=== PATIENT | female | born 1950 | race Caucasian/White ===

== ENCOUNTER → 2017-04-12 | Outpatient (CLI) | payer OTHER ==
[2017-04-12 13:05] LABS: BASO % 0.3 % (0.0-1.0); EOS # 0.2 10^3/uL (0.0-0.50); EOS % 2.2 % (0.0-3.0); IMMATURE GRANULOCYTE % 0.3 % (0-0); LYMPH # 1.5 10^3/uL (1.5-4.5); LYMPH % 21.1 % (24.0-44.0); MEAN CORPUSCULAR HEMOGLOBIN 28.8 pg (27.0-33.0); MEAN CORPUSCULAR HGB CONC 31.1 g/dl (32.0-36.5); MEAN CORPUSCULAR VOLUME 92.7 fl (80.0-96.0); MONO # 0.7 10^3/uL (0.0-0.8); MONO % 10.3 % (0.0-5.0); NEUTROPHILS # 4.8 10^3/uL (1.8-7.7); NEUTROPHILS % 65.8 % (36.0-66.0); PLATELET COUNT, AUTOMATED 271 10^3/uL (150-450); RED CELL DISTRIBUTION WIDTH 15.7 % (11.5-14.5); WHITE BLOOD COUNT 7.2 10^3/uL (4.0-10.0)
[2017-04-12 13:28] LABS: ADD MANUAL DIFFER NO; DIFF SLIDE NUMBER 119
[2017-04-12 13:30] LABS: ALBUMIN 3.6 GM/DL (3.2-5.2); ALKALINE PHOSPHATASE 131 U/L (45-117); ALT/SGPT 32 U/L (12-78); ANION GAP 6 MEQ/L (8-16); AST/SGOT 19 U/L (15-37); BILIRUBIN,TOTAL 0.7 MG/DL (0.2-1.0); BLOOD UREA NITROGEN 19 MG/DL (7-18); CALCIUM LEVEL 9.1 MG/DL (8.8-10.2); CARBON DIOXIDE LEVEL 29 MEQ/L (21-32); CHLORIDE LEVEL 105 MEQ/L (98-107); CHOLESTEROL LEVEL 207 MG/DL (<200); CREATININE FOR GFR 0.69 MG/DL (0.55-1.02); FREE T4 0.88 NG/DL (0.76-1.46); GLOMERULAR FILTRATION RATE > 60.0 (>45); GLUCOSE, FASTING 83 MG/DL (80-110); POTASSIUM SERUM 4.9 MEQ/L (3.5-5.1); SODIUM LEVEL 140 MEQ/L (136-145); TOTAL PROTEIN 7.2 GM/DL (6.4-8.2); TRIGLYCERIDES LEVEL 85 MG/DL (<150)
== END ==
LOC: M SMT 08:18
PROVIDERS: ATTEND Physician Assistant
DX: I10 Essential (primary) hypertension (principal)

== ENCOUNTER → 2017-04-16 | Outpatient (CLI) | payer OTHER ==
--- NOTE | 2017-04-16 10:41 | REPMRS ---
Patient History The patient states she had a clinical breast exam in April 2017. Patient is postmenopausal and has history of endometrial cancer at age 63. Family history of endometrial cancer in mother at age 50 or over. Digital Mammo Diagnostic Bilateral: April 16, 2017 - Exam #: [id number] Bilateral CC and MLO view(s) were taken. Technologist: Racheal Renae Technologist Prior study comparison: November 17, 2010, digital bilateral screening mammo, performed at [facility]. FINDINGS: There are scattered fibroglandular densities. The cutaneous mole which previously projected in the axillary region on the right MLO view, has been removed in the interval since the last mammogram. There has been no other change in the appearance of the mammogram from the prior studies. There is a mild amount of scattered fibroglandular density which is fairly symmetric. There is no interval development of dominant mass, architectural distortion, or clustered microcalcification suggestive of malignancy. ASSESSMENT: BI-RADS/ACR category 2 mammogram. Benign finding(s). Recommendation Routine screening mammogram in 1 year (for women over age 40). This mammogram was interpreted with the aid of an FDA-approved computer-aided dectection system. Electronically Signed By: Rayo Dorado MD 04/16/17 [id number]
== END ==
LOC: M RAD 10:02
PROVIDERS: ATTEND Physician Assistant
DX: N64.4 Mastodynia (principal); Z78.0 Asymptomatic menopausal state

== ENCOUNTER 2017-08-03 14:28 | Emergency (ER) | payer SELFPAY, OTHER | END 2017-08-03 17:08 | disposition home or self-care (01) | LOC: M ED 14:28 | DX: J06.9 Acute upper respiratory infection, unspecified (principal); I10 Essential (primary) hypertension; Z85.42 Personal history of malignant neoplasm of other parts of uterus; Z79.899 Other long term (current) drug therapy | CPT/HCPCS: 87804 ==

== ENCOUNTER → 2017-10-11 | Outpatient (CLI) | payer OTHER ==
[2017-10-11 13:41] LABS: BASO # 0.1 10^3/uL (0.0-0.2); BASO % 0.4 % (0.0-1.0); EOS # 0.2 10^3/uL (0.0-0.50); EOS % 1.3 % (0.0-3.0); HEMOGLOBIN 13.5 g/dl (12.0-15.5); IMMATURE GRANULOCYTE % 0.3 % (0-3.0); LYMPH # 2.1 10^3/uL (1.5-4.5); LYMPH % 18.3 % (24.0-44.0); MEAN CORPUSCULAR HEMOGLOBIN 28.7 pg (27.0-33.0); MEAN CORPUSCULAR HGB CONC 31.4 g/dl (32.0-36.5); MEAN CORPUSCULAR VOLUME 91.3 fl (80.0-96.0); MONO % 9.1 % (0.0-5.0); NEUTROPHILS # 7.9 10^3/uL (1.8-7.7); NEUTROPHILS % 70.6 % (36.0-66.0); PLATELET COUNT, AUTOMATED 347 10^3/uL (150-450); RED BLOOD COUNT 4.71 10^6/uL (4.00-5.40); RED CELL DISTRIBUTION WIDTH 15.5 % (11.5-14.5); WHITE BLOOD COUNT 11.2 10^3/uL (4.0-10.0)
[2017-10-11 13:44] LABS: ANION GAP 10 MEQ/L (8-16); BLOOD UREA NITROGEN 19 MG/DL (7-18); CALCIUM LEVEL 8.9 MG/DL (8.8-10.2); CARBON DIOXIDE LEVEL 27 MEQ/L (21-32); CHLORIDE LEVEL 103 MEQ/L (98-107); GLOMERULAR FILTRATION RATE > 60.0 (>45); GLUCOSE, FASTING 85 MG/DL (70-100); POTASSIUM SERUM 4.4 MEQ/L (3.5-5.1); SODIUM LEVEL 140 MEQ/L (136-145)
== END ==
LOC: M SMT 08:12
DX: M19.012 Primary osteoarthritis, left shoulder (principal); I10 Essential (primary) hypertension
CPT/HCPCS: 80048

== ENCOUNTER → 2018-01-31 | Outpatient (CLI) | payer OTHER ==
[2018-01-31 13:41] LABS: BASO # 0.1 10^3/uL (0.0-0.2); BASO % 0.6 % (0.0-1.0); EOS # 0.1 10^3/uL (0.0-0.50); EOS % 1.6 % (0.0-3.0); HEMATOCRIT 43.5 % (36.0-47.0); HEMOGLOBIN 13.7 g/dl (12.0-15.5); IMMATURE GRANULOCYTE % 0.3 % (0-3.0); LYMPH # 2.1 10^3/uL (1.5-4.5); LYMPH % 26.2 % (24.0-44.0); MEAN CORPUSCULAR HEMOGLOBIN 29.4 pg (27.0-33.0); MEAN CORPUSCULAR HGB CONC 31.5 g/dl (32.0-36.5); MEAN CORPUSCULAR VOLUME 93.3 fl (80.0-96.0); MONO # 0.7 10^3/uL (0.0-0.8); MONO % 8.7 % (0.0-5.0); NEUTROPHILS % 62.6 % (36.0-66.0); PLATELET COUNT, AUTOMATED 299 10^3/uL (150-450); RED BLOOD COUNT 4.66 10^6/uL (4.00-5.40); RED CELL DISTRIBUTION WIDTH 15.1 % (11.5-14.5)
[2018-01-31 14:09] LABS: ALBUMIN 3.5 GM/DL (3.2-5.2); ALKALINE PHOSPHATASE 125 U/L (45-117); ALT/SGPT 32 U/L (12-78); ANION GAP 8 MEQ/L (8-16); AST/SGOT 22 U/L (7-37); BILIRUBIN,TOTAL 0.7 MG/DL (0.2-1.0); BLOOD UREA NITROGEN 19 MG/DL (7-18); CALCIUM LEVEL 9.1 MG/DL (8.8-10.2); CARBON DIOXIDE LEVEL 29 MEQ/L (21-32); CHLORIDE LEVEL 104 MEQ/L (98-107); CHOLESTEROL LEVEL 218 MG/DL (<200); CHOLESTEROL RISK RATIO 3.892 (<5); CREATININE FOR GFR 0.75 MG/DL (0.55-1.30); FREE T4 0.86 NG/DL (0.76-1.46); GLOMERULAR FILTRATION RATE > 60.0 (>45); GLUCOSE, FASTING 89 MG/DL (70-100); HDL CHOLESTEROL 56 MG/DL (>40); LDL CHOLESTEROL 145.2 MG/DL (<100); NON-HDL-C 162 MG/DL; POTASSIUM SERUM 4.6 MEQ/L (3.5-5.1); SODIUM LEVEL 141 MEQ/L (136-145); TOTAL PROTEIN 7.4 GM/DL (6.4-8.2); TRIGLYCERIDES LEVEL 84 MG/DL (<150)
== END ==
LOC: M SMT 08:24
DX: J06.9 Acute upper respiratory infection, unspecified (principal); I10 Essential (primary) hypertension
CPT/HCPCS: 84443

== ENCOUNTER → 2018-11-15 | Outpatient (REF) | payer OTHER ==
[~2018-11-15] MED LIST: CARV12.5 PO; CITA20TA6 PO; HYDR25TAB PO; LISI10TA4 PO; MAGICMW SSP; TESS100C PO
== END ==
LOC: M LABDRAW1 12:53
PROVIDERS: ATTEND Radiology Diagnostic Radiology
DX: N63.20 Unspecified lump in the left breast, unspecified quadrant (principal)

== ENCOUNTER → 2018-12-06 | Outpatient (CLI) | payer OTHER | LOC: M SMT 09:53 | PROVIDERS: ATTEND Physician Assistant | DX: E78.00 Pure hypercholesterolemia, unspecified (principal); Z53.9 Procedure and treatment not carried out, unspecified reason ==

== ENCOUNTER → 2018-12-12 | Outpatient (CLI) | payer MEDICARE, OTHER ==
[2018-12-12 09:32] LABS: BASO % 0.4 % (0.0-1.0); EOS # 0.2 10^3/uL (0.0-0.50); EOS % 2.5 % (0.0-3.0); HEMATOCRIT 44.6 % (36.0-47.0); LYMPH # 1.9 10^3/uL (1.5-4.5); LYMPH % 24.6 % (24.0-44.0); MEAN CORPUSCULAR HEMOGLOBIN 29.2 pg (27.0-33.0); MEAN CORPUSCULAR HGB CONC 31.4 g/dl (32.0-36.5); MEAN CORPUSCULAR VOLUME 92.9 fl (80.0-96.0); MONO # 0.9 10^3/uL (0.0-0.8); MONO % 11.6 % (0.0-5.0); NEUTROPHILS # 4.6 10^3/uL (1.8-7.7); NEUTROPHILS % 60.6 % (36.0-66.0); PLATELET COUNT, AUTOMATED 272 10^3/uL (150-450); WHITE BLOOD COUNT 7.6 10^3/uL (4.0-10.0)
[2018-12-12 09:57] LABS: ALBUMIN 3.6 GM/DL (3.2-5.2); ALT/SGPT 25 U/L (12-78); BILIRUBIN,TOTAL 0.5 MG/DL (0.2-1.0); BLOOD UREA NITROGEN 20 MG/DL (7-18); CALCIUM LEVEL 9.3 MG/DL (8.8-10.2); CARBON DIOXIDE LEVEL 29 MEQ/L (21-32); CHLORIDE LEVEL 104 MEQ/L (98-107); CHOLESTEROL LEVEL 233 MG/DL (<200); CHOLESTEROL RISK RATIO 3.758 (<5); CREATININE FOR GFR 0.68 MG/DL (0.55-1.30); FREE T4 0.84 NG/DL (0.76-1.46); GLOMERULAR FILTRATION RATE > 60.0 (>45); GLUCOSE, FASTING 87 MG/DL (70-100); HDL CHOLESTEROL 62 MG/DL (>40); HEMOGLOBIN A1c 5.9 %; LDL CHOLESTEROL 157 MG/DL (<100); NON-HDL-C 171 MG/DL; POTASSIUM SERUM 4.8 MEQ/L (3.5-5.1); SODIUM LEVEL 140 MEQ/L (136-145); TOTAL PROTEIN 7.2 GM/DL (6.4-8.2); TRIGLYCERIDES LEVEL 72 MG/DL (<150)
== END ==
LOC: M LAB 08:15
PROVIDERS: ATTEND Physician Assistant
DX: E78.00 Pure hypercholesterolemia, unspecified (principal)

== ENCOUNTER → 2018-12-14 | Outpatient (CLI) | payer MEDICARE ==
--- NOTE | 2018-12-14 15:15 | ECHO ---
DATE OF PROCEDURE: 12/14/2018 AGE: 67 GENDER: Female HEIGHT: 63 inches WEIGHT: 290 pounds BODY SURFACE AREA: 2.26 m2 PATIENT LOCATION: Outpatient. REFERRING PHYSICIAN: CHARIS Quijano INDICATION: Dyspnea. 2D MEASUREMENTS: RV: 3.9 cm LV: 4.3 cm Septum: 1.0 cm Posterior wall: 1.1 cm Aortic root: 3.1 cm LA: 3.4 cm LVEF: 65% DOPPLER MEASUREMENTS: AV:1.6 m/s LVOT: 1.2 m/s LVOT diameter: 1.9 cm MV-E: 63, A: 77, EA ratio: 0.8 Early mitral deceleration time: 289 ms E prime: 4.8, A prime 8.4, E/E prime ratio: 13 PCWP: 15.3 mmHg PV: 0.9 m/s Pulmonary artery acceleration time: 110 ms RVSP: 34 mmHg IVC: 1.8 - 2.0 cm ? COMMENTS: Normal sinus rhythm without intraventricular conduction disturbance. Technically challenging study in light of the patient's body habitus but diagnostically useful information was still obtained. M-mode and two-dimensional echocardiography was performed with pulsed, continuous wave, color flow and tissue Doppler studies. Normal left ventricular size, wall thickness and wall motion. Normal left atrial size with a degree of impairment of LV diastolic function, but current estimated mean left atrial pressure upper limits of normal. Normal right heart chamber sizes and motion with Doppler evidence of mild pulmonary hypertension. IVC size was somewhat difficult to visualize in light of her body habitus but did not appear to be dilated and suspected fairly normal respiratory collapse. Slight aortic valvular sclerosis without functional abnormality. Mild mitral annular thickening with very mild insufficiency. Normal appearing tricuspid valve with mild insufficiency. Normal aortic root size. No apparent intracardiac mass or pericardial effusion. MTDD
== END ==
LOC: M CARPUL 08:19
PROVIDERS: ATTEND Physician Assistant
DX: R06.09 Other forms of dyspnea (principal)

== ENCOUNTER → 2019-02-09 | Outpatient (CLI) | payer MEDICARE ==
[~2019-02-09] MED LIST changes: +ACET-683 PO; +CVS50CAP PO; +IBUP200T45 PO; +LETR2.5T2 PO; +SIMV20TA2 PO; +TUMS750C5 PO
--- NOTE | 2019-02-11 07:38 | RADONC ---
RADIATION ONCOLOGY CONSULTATION NOTE DATE: 02/09/2019 CHART NUMBER: [id number] DIAGNOSIS: Left breast cancer. STAGE I A, T1b, N0, M0, ER positive, SD positive, HER2 negative, grade 1, Oncotype score 12. ECOG PERFORMANCE STATUS: 0 CONSULTATION NOTE: Ms. Camargo is a very pleasant 68-year-old white female with the diagnosis of what appears to be a stage I A, [id number] well-differentiated infiltrating ductal carcinoma of the left breast which is ER positive, SD positive, HER2/negative with an Oncotype score of 12 who is presenting to us today for consideration of postoperative radiation therapy for conservative breast management. HISTORY OF PRESENT ILLNESS: The patient was in her usual state of health until routine mammogram was done on November 10, 2018 which showed a suspicious lesion in the 12 o'clock position of the left breast. On 12/16/2018, the patient underwent a needle guided lumpectomy and sentinel lymph node biopsy with Dr. Sarah Steinberg MD. Pathology revealed a 1 cm well-differentiated infiltrating ductal carcinoma. All margins of resection were negative. The tumor was estrogen receptor and progesterone receptor positive and HER2 negative. [place] lymph node sampling revealed one sentinel lymph node which was negative for metastatic disease. An Oncotype recurrence score was noted to be 12. The patient was deemed not to be a candidate for systemic chemotherapy and is now being referred to us for consideration of postoperative radiation therapy for conservative breast management. PAST MEDICAL HISTORY: The patient's past medical history is positive for hypertension and arthritis. She has had a uterine cancer in 2016 with a hysterectomy and bilateral salpingo-oophorectomy undertaken. ALLERGIES: The patient has NO KNOWN DRUG ALLERGIES. SOCIAL HISTORY: The patient does not smoke cigarettes nor abuse alcohol. FAMILY HISTORY: The patient's family history is positive for a mother with ovarian cancer. REVIEW OF SYSTEMS: The patient's review of systems is positive for some depression for which she is taking antidepressants. It is otherwise noncontributory. She denies nausea, vomiting, fevers, chills, night sweats, diplopia, headaches, anxiety or depression, anorexia, weight loss, visual disturbances, chest pain, urinary or bowel difficulties, bone pain, or neurological problems. PHYSICAL EXAMINATION: The patient is a well-developed, well-nourished female in no acute distress. HEENT exam is normocephalic, atraumatic. Extraocular movements are intact. There is no palpable cervical, supraclavicular, infraclavicular, axillary, or inguinal lymphadenopathy present. Lungs are clear to auscultation and percussion. Heart has a regular rate and rhythm. Abdomen is benign with no hepatosplenomegaly, masses, or tenderness. Breast examination reveals no masses or discharge bilaterally. Skeletal examination reveals no tenderness to pressure or percussion of the bony skeleton. Extremities reveal no clubbing, cyanosis, or edema. Neurologic exam is grossly intact, as is the remainder of the physical examination. ASSESSMENT: Clearly the patient is a candidate for external beam radiation therapy and I have so informed her. I have discussed with the patient in detail the potential benefits as well as possible acute and chronic sequelae of external beam radiation therapy. We discussed logistics of treatment planning, simulation and subsequent fractionated daily radiation treatments. I have scheduled the patient for the next available simulation slot and radiation treatments will follow. Thank you for allowing us to participate in the care of this very pleasant woman. If I could be of any further assistance or provide you with any information, please feel free to contact me at anytime. As always, warm regards: Nic Soto cc: MD Sarah Tran MD Jill Laureano-Surber,
== END ==
LOC: M ONCR 09:43
PROVIDERS: ATTEND Radiology Radiation Oncology
DX: C50.919 Malignant neoplasm of unspecified site of unspecified female breast (principal)

== ENCOUNTER → 2019-02-21 | Outpatient (CLI) | payer MEDICARE ==
--- NOTE | 2019-02-24 15:21 | DEXA ---
AP SPINE L1 - L4 1.116 -0.6 1.0 LT FEMUR TOTAL 1.047 0.3 1.6 LT NECK 0.900 -1.0 0.5 RT FEMUR TOTAL 1.042 0.3 1.5 RT NECK 0.902 -1.0 0.5 TOTAL BODY TOTAL OTHER COMMENTS: Normal bone densitometry of the spine. There is low bone density of the hips. FOLLOW-UP: Recommendation for the next bone density exam: 2 years. ANDREW
== END ==
LOC: M WHC 12:51
PROVIDERS: ATTEND Internal Medicine Medical Oncology
DX: Z13.820 Encounter for screening for osteoporosis (principal); M85.89 Other specified disorders of bone density and structure, multiple sites

== ENCOUNTER 2019-03-10 10:37 | Outpatient (RCR) | payer MEDICARE ==
--- NOTE | 2019-02-28 10:25 | RADONC ---
RADIATION ONCOLOGY SIMULATION NOTE DATE: 02/23/2019 CHART NUMBER: [id number] SIMULATION NOTE: The patient was brought into the simulator room and placed in a supine position. An immobilization device was fabricated for the patient in order to enable her to receive consistency in a day-to-day set up and hence, improved accuracy in day-to-day treatments. The patient tolerated the immobilization device quite well. Thereafter, 3 mm images were obtained through the CT simulation scanner and were captured for future contouring so that appropriate planning can be developed to deliver doses to the PTV (planned treatment volume) and avoid normal surrounding critical structures such as heart and lung as well as other structures which would not benefit from radiotherapy. I was there during the entire simulation process. She tolerated the process quite well with no significant untoward side effects, and she was sent home after the completion of the procedure.
--- NOTE | 2019-03-08 09:00 | RADONC ---
RADIATION ONCOLOGY PROGRESS NOTE DATE: 03/06/2019 CHART #: [id number] Ms. Camargo underwent her first fraction of radiation day to her left breast for a dose of 180 cGy. It was tolerated without difficulty or discomfort. REVIEW OF SYSTEMS: The patient's review of systems is noncontributory. Denies nausea, vomiting, fevers, chills, night sweats, diplopia, headaches, anxiety or depression, anorexia, weight loss, visual disturbances, chest pain, urinary or bowel difficulties, bone pain, or neurological problems. PHYSICAL EXAMINATION: The patient's skin clearly showed no evidence of radiation change present as this was her first fraction of treatment. The remainder of her physical exam remains unchanged. Ms. Camargo tolerated her first fraction radiation well and radiation treatments will continue as scheduled.
[~2019-03-10 10:37] MED LIST changes: -SIMV20TA2 PO; +SIMV20TA22 PO
== END 2019-03-11 ==
LOC: M ONCR 10:37
PROVIDERS: ATTEND Radiology Radiation Oncology
DX: C50.812 Malignant neoplasm of overlapping sites of left female breast (principal)

== ENCOUNTER → 2019-04-10 | Outpatient (RCR) | payer MEDICARE ==
--- NOTE | 2019-03-15 08:59 | RADONC ---
RADIATION ONCOLOGY FOLLOWUP NOTE DATE: 03/14/2019 CHART NUMBER: [id number] DIAGNOSIS: Left breast cancer. FOLLOWUP NOTE: Mrs. Elizondo with a diagnosis of left breast cancer stage I A is currently undergoing radiotherapy and she has to date achieved a dose of 1080 cGy of a proposed 4860 cGy. Thereafter, she will receive a boost to the lumpectomy scar site. She is tolerating her radiotherapy reasonably well, denying any nausea, vomiting, coughing, sputum production or hemoptysis. REVIEW OF SYSTEMS: She also denies significant skin irritation, fatigue or other systemic side effects. She may have very minimal skin erythema, barely perceptible. Her energy level is such that she is able to maintain most day-to-day activities without any alteration of her lifestyle. EXAMINATION FINDINGS: Minimal if any skin erythema without desquamation. No palpable peripheral lymphadenopathy. Lungs are clear. The remainder of the physical examination is noncontributory. IMPRESSION: Tolerating therapy well. PLAN: Treatments to continue.
--- NOTE | 2019-03-20 13:41 | RADONC ---
RADIATION ONCOLOGY PROGRESS NOTE DATE: 03/20/2019 CHART NUMBER: [id number] PROGRESS NOTE: Ms. Camargo with a diagnosis of left breast cancer is continuing with local regional radiotherapy. She is tolerating her radiotherapy reasonably well with the exception of some skin irritation most prominent in the inframammary fold. She was putting Vaseline Intensive Care lotion on the skin, which I have strongly recommended that she not continue. We have given her some suggestions as to products which she might use. The skin does not show any moist desquamation, however, it looks as though there is a substantial amount of erythema and that before long the skin may desquamate. I have suggested to her that we therefore call in a new prescription for some Silvadene cream for her to use twice daily on her skin and she is in agreement to proceed with that approach. She denies any nausea, vomiting, coughing, sputum production or hemoptysis. Her energy level is satisfactory and she is able to maintain most for day-to-day activities without any alteration of her lifestyle. The remainder of the review of systems is unchanged. EXAMINATION FINDINGS: The patient has significant erythema and some what appears to be impending desquamation in the inframammary fold. There is no palpable peripheral lymphadenopathy. Lungs are clear. The remainder of the examination is unchanged. IMPRESSION: The patient appears to be tolerating her radiotherapy respond reasonably well. I have taken the liberty of calling in a prescription for some Silvadene to treat her brisk erythema and impending probable desquamation in the future if it is not treated. Thank you for allowing us the opportunity of participation the management this patient, most sincerely.
--- NOTE | 2019-03-29 12:56 | RADONC ---
RADIATION ONCOLOGY PROCEDURE NOTE: DATE OF SERVICE: 03/27/2019 CHART NUMBER: [id number]. PROGRESS NOTE: Ms. Camargo is presently a dose of 2700 cGy to her left breast and is tolerating treatments quite well at this point with no complaints related to her radiation therapy. She is having no breast or bone pain. She does have some erythema under the left axillary region. REVIEW OF SYSTEMS: The patient's review of systems is noncontributory. She Denies nausea, vomiting, fevers, chills, night sweats, diplopia, headaches, anxiety or depression, anorexia, weight loss, visual disturbances, chest pain, urinary or bowel difficulties, bone pain, or neurological problems. PHYSICAL EXAMINATION: The patient's skin is in excellent condition with no evidence of moist or dry desquamation. There is some redness in the upper outer quadrant in the axillary region. The remainder of her physical exam remains unchanged. Ms. Camargo is tolerating treatments quite well, and radiation will continue as scheduled. I sent in a prescription for Silvadene to be applied topically.
--- NOTE | 2019-04-04 12:24 | RADONC ---
RADIATION ONCOLOGY DATE: 04/03/2019 CHART NUMBER: [id number] Ms. Camargo is presently at a dose of 3060 cGy to her left breast and overall is tolerating her treatments fairly well. She is complaining of some discomfort in a axillary region. REVIEW OF SYSTEMS: The patient's review of systems is positive for some discomfort in the axillary region but is otherwise noncontributory. She denies nausea, vomiting, fevers, chills, night sweats, diplopia, headaches, anxiety or depression, anorexia, weight loss, visual disturbances, chest pain, urinary or bowel difficulties, bone pain, or neurological problems. PHYSICAL EXAMINATION: The patient's skin overall is in good condition with no evidence of moist desquamation. There is some brisk erythema in the axillary region. The remainder of physical exam remains unchanged. Ms. Camargo is tolerating her treatments fairly well and radiation will continue as scheduled. She is continuing to use Silvadene.
--- NOTE | 2019-04-06 11:33 | RADONC ---
RADIATION ONCOLOGY SIMULATION NOTE: DATE:04/05/2019 CHART NUMBER: [id number] Ms. Elizondo was taken to linear accelerator today for clinical setup of her left breast electron beam boost field. Setup was accomplished without difficulty or discomfort. Radiation treatment planning is underway and radiation treatments will begin subsequently. An immobilization device was created and will be used throughout the course of treatment. It was created without difficulty or discomfort. I was physically present throughout the course of CT simulation.
[~2019-04-10] MED LIST changes: +SIMV20TA2 PO; -SIMV20TA22 PO
--- NOTE | 2019-04-10 14:48 | RADONC ---
RADIATION ONCOLOGY PROGRESS NOTE DATE: 04/10/2019 CHART NUMBER:: [id number] Ms. Camargo is presently at a dose of 3960 cGy to her left breast and is tolerating treatments quite well at this point with no significant difficulties related to her radiation therapy other than some skin discomfort. REVIEW OF SYSTEMS: The patient's review of systems is positive for some skin discomfort but is otherwise noncontributory. She denies nausea, vomiting, fevers, chills, night sweats, diplopia, headaches, anxiety or depression, anorexia, weight loss, visual disturbances, chest pain, urinary or bowel difficulties, bone pain, or neurological problems. PHYSICAL EXAMINATION: The patient's skin is in generally good condition with erythema and tanning present. There is an area of dry desquamation mostly in the axillary inframammary regions. The remainder of her physical exam remains unchanged. Ms. Camargo is tolerating her treatments quite well and radiation will continue as scheduled.
== END ==
LOC: M ONCR 03-14 10:53
PROVIDERS: ATTEND Radiology Radiation Oncology
DX: C50.812 Malignant neoplasm of overlapping sites of left female breast (principal)

== ENCOUNTER 2019-04-25 10:20 | Outpatient (RCR) | payer MEDICARE ==
--- NOTE | 2019-04-18 10:12 | RADONC ---
RADIATION ONCOLOGY PROGRESS NOTE DATE: 04/17/2019 CHART #: [id number] Ms. Camargo is presently at a dose of 4860 cGy to her left breast and has done quite well with her radiation therapy. She is complaining at this time of tenderness and discomfort especially in the inframammary and axillary regions. REVIEW OF SYSTEMS: The patient's review of systems is positive for axillary and inframammary discomfort but is otherwise noncontributory. Denies nausea, vomiting, fevers, chills, night sweats, diplopia, headaches, anxiety or depression, anorexia, weight loss, visual disturbances, chest pain, urinary or bowel difficulties, bone pain, or neurological problems. PHYSICAL EXAMINATION: The patient's skin on most of the breast shows some erythema and tanning present. There are areas of moist desquamation in the inframammary region as well as axillary area. The remainder of her physical exam remains unchanged. The patient has completed radiation to the whole breast at this time and is using Silvadene on that area. She will begin treatment to the primary site, the skin of which is in good condition.
--- NOTE | 2019-04-24 14:08 | RADONC ---
RADIATION ONCOLOGY PROGRESS NOTE DATE: 04/24/2019 CHART NUMBER: [id number] PROGRESS NOTE: Ms. Camargo is presently at a dose of 5860 cGy to her left breast primary site and is tolerating treatments quite well at this point with no significant difficulties related to her radiation therapy other than a brisk skin reaction. REVIEW OF SYSTEMS: The patient's review of systems is positive for some skin discomfort in the axillary inframammary regions but is otherwise noncontributory. Denies nausea, vomiting, fevers, chills, night sweats, diplopia, headaches, anxiety or depression, anorexia, weight loss, visual disturbances, chest pain, urinary or bowel difficulties, bone pain, or neurological problems. PHYSICAL EXAMINATION: The patient's skin overall is in good condition with some erythema and tanning present but no evidence of moist or dry desquamation. The remainder of physical exam remains unchanged. Ms. Camargo is tolerating treatments quite well and radiation will continue as scheduled.
--- NOTE | 2019-04-26 09:46 | RADONC ---
RADIATION ONCOLOGY TREATMENT SUMMARY DATE OF SERVICE: 04/25/2019 CHART NUMBER: [id number] DIAGNOSIS: Left breast cancer. STAGE: IA, [id number], ER positive, CA positive, HER2 negative, grade 1, Oncotype score 12. ECOG PERFORMANCE STATUS: 0. TREATMENT SUMMARY: Ms. Camargo is a very pleasant 68-year-old white female with the diagnosis of what appears to be a stage IA, [id number] well-differentiated infiltrating ductal carcinoma of the left breast which is ER positive, CA positive, and HER2 negative and also has an Oncotype score of 12, who presented to us for consideration of postoperative radiation therapy for conservative breast management. We treated the patient to her left breast for a total dose of 4860 cGy delivered in 27 fractions of 180 cGy each over 42 elapsed days from 03/06/2019 through 04/17/2019. The patient's left breast was treated on a linear accelerator utilizing a 6XMV photon beam via IMRT. Following completion of 4860 cGy, the entire left breast the primary site was boosted for an additional 1200 cGy delivered and six fractions of 200 cGy each over 7 elapsed days from 04/18/2019 through 04/25/2019. The primary site boost was treated on a linear accelerator utilizing a 16 MEV electron beam prescribed to the 90% isodose line via nonphos technique. This brought the primary site to a total dose of 6060 cGy delivered in 33 fractions over 49 elapsed days from 03/06/2019 through 04/25/2019. Ms. Camargo tolerated her treatments quite well and was able complete therapy as prescribed. I have scheduled the patient to see me again in 1 month for further followup. She will also continue to be followed by her other physicians, as well. Thank you for allowing us to participate in the care of this very pleasant woman. If I could be of any further assistance or provide you any information, please feel free to contact me at any time. As always, warm regards, Jaden Soto cc: MD Sarah Tran MD Jill Laureano-Surber,
== END 2019-05-11 ==
LOC: M ONCR 10:20
PROVIDERS: ATTEND Radiology Radiation Oncology
DX: C50.812 Malignant neoplasm of overlapping sites of left female breast (principal)

== ENCOUNTER → 2019-04-26 | Outpatient (CLI) | payer MEDICARE ==
[2019-04-26 11:28] LABS: HEMOGLOBIN A1c 5.6 %
[2019-04-26 11:46] LABS: ALBUMIN 3.4 GM/DL (3.2-5.2); ALT/SGPT 33 U/L (12-78); BILIRUBIN,TOTAL 0.7 MG/DL (0.2-1.0); BLOOD UREA NITROGEN 17 MG/DL (7-18); CALCIUM LEVEL 9.5 MG/DL (8.8-10.2); CARBON DIOXIDE LEVEL 29 MEQ/L (21-32); CHLORIDE LEVEL 107 MEQ/L (98-107); CHOLESTEROL LEVEL 160 MG/DL (<200); CHOLESTEROL RISK RATIO 2.758 (<5); CREATININE FOR GFR 0.72 MG/DL (0.55-1.30); GLOMERULAR FILTRATION RATE > 60.0 (>45); GLUCOSE, FASTING 97 MG/DL (70-100); HDL CHOLESTEROL 58 MG/DL (>40); LDL CHOLESTEROL 86 MG/DL (<100); NON-HDL-C 102 MG/DL; POTASSIUM SERUM 4.9 MEQ/L (3.5-5.1); SODIUM LEVEL 142 MEQ/L (136-145); TOTAL PROTEIN 7.1 GM/DL (6.4-8.2); TRIGLYCERIDES LEVEL 80 MG/DL (<150)
== END ==
LOC: M SMT 07:58
PROVIDERS: ATTEND Physician Assistant
DX: E78.00 Pure hypercholesterolemia, unspecified (principal); R73.03 Prediabetes

== ENCOUNTER → 2019-05-31 | Outpatient (CLI) | payer MEDICARE ==
--- NOTE | 2019-06-02 09:22 | RADONC ---
RADIATION ONCOLOGY FOLLOWUP NOTE DATE: 05/31/2019 CHART NUMBER: [id number] DIAGNOSIS: Left breast cancer. STAGE: I A, T1b, NO, M0, ER positive, [place] positive, HER2/babita negative, grade 1, oncotype score 12. ECOG PERFORMANCE STATUS: 0 FOLLOWUP NOTE: Ms. Camargo is a very pleasant 68-year-old white female with the diagnosis what appears to be a stage I A, [id number] well-differentiated infiltrating ductal carcinoma of the left breast which is ER positive, NJ positive and HER2/babita negative with an oncotype score of 12 who is presenting to us today for routine followup visit 1 month post completion of external beam radiation therapy. The patient presents today reporting that she is doing quite well with no complaints at this time related to her radiation therapy or disease. She has no breast or bone pain. REVIEW OF SYSTEMS: The patient's review of systems is noncontributory. Denies nausea, vomiting, fevers, chills, night sweats, diplopia, headaches, anxiety or depression, anorexia, weight loss, visual disturbances, chest pain, urinary or bowel difficulties, bone pain, or neurological problems. PHYSICAL EXAMINATION: The patient is a well-developed, well-nourished, 68-year-old white female in no acute distress. HEENT exam is normocephalic, atraumatic. Extraocular movements are intact. There is no palpable cervical, supraclavicular, infraclavicular, axillary, or inguinal lymphadenopathy present. Lungs are clear to auscultation and percussion. Heart has a regular rate and rhythm. Abdomen is benign with no hepatosplenomegaly, masses, or tenderness. Breast examination reveals no masses or discharge bilaterally. Skeletal examination reveals no tenderness to pressure or percussion of the bony skeleton. Extremities reveal no clubbing, cyanosis, or edema. Neurologic exam is grossly intact, as is the remainder of the physical examination. ASSESSMENT: The patient is clinically ESDRAS at this time and is being discharged from our followup except on a p.r.n. basis. She has my cell phone number and office number if I could be of any assistance or provide her with any information in the meantime. The patient is continuing her close followup with her medical oncologist, Dr. Cassie Adams as well as her surgeon and Dr. Sarah Steinberg, and both of those are MD. In addition, she is being followed by her other physicians as well. cc: MD Sarah Tran, MD Faviola Melendez, DO
== END ==
LOC: M ONCR 10:39
PROVIDERS: ATTEND Radiology Radiation Oncology
DX: C50.812 Malignant neoplasm of overlapping sites of left female breast (principal)

== ENCOUNTER → 2019-08-08 | Outpatient (CLI) | payer MEDICARE ==
[~2019-08-08] MED LIST changes: -SIMV20TA2 PO; +SIMV20TA22 PO
[2019-08-08 12:23] LABS: ALBUMIN 3.5 GM/DL (3.2-5.2); ALT/SGPT 30 U/L (12-78); BILIRUBIN,TOTAL 0.5 MG/DL (0.2-1.0); BLOOD UREA NITROGEN 19 MG/DL (7-18); CARBON DIOXIDE LEVEL 27 MEQ/L (21-32); CHLORIDE LEVEL 105 MEQ/L (98-107); CHOLESTEROL LEVEL 160 MG/DL (<200); CHOLESTEROL RISK RATIO 2.539 (<5); CREATININE FOR GFR 0.62 MG/DL (0.55-1.30); GLOMERULAR FILTRATION RATE > 60.0 (>45); GLUCOSE, FASTING 78 MG/DL (70-100); HDL CHOLESTEROL 63 MG/DL (>40); LDL CHOLESTEROL 84 MG/DL (<100); NON-HDL-C 97 MG/DL; POTASSIUM SERUM 4.9 MEQ/L (3.5-5.1); SODIUM LEVEL 141 MEQ/L (136-145); TOTAL PROTEIN 7.2 GM/DL (6.4-8.2); TRIGLYCERIDES LEVEL 65 MG/DL (<150)
== END ==
LOC: M PLALAB 07:54
PROVIDERS: ATTEND Physician Assistant
DX: E78.00 Pure hypercholesterolemia, unspecified (principal); R73.03 Prediabetes

== ENCOUNTER → 2019-08-16 | Outpatient (CLI) | payer MEDICARE ==
[~2019-08-16] MED LIST changes: +GASTROGRAFIN SOLUTION 30ML (Q9963) As Ordered ONE; +ISOVUE-370 76% 100ML VIAL (Q9967) As Ordered ONE
--- NOTE | 2019-08-17 16:13 | REP ---
Clinical: Stage I endometrial carcinoma. Technique: Axial contrast enhanced images from the lung bases to the pubic symphysis using oral (per protocol) and 100 ml Isovue 370 intravenous contrast material with coronal and sagittal re-formations. Delayed images of the abdomen obtained. Comparison: None. Findings: Lung bases are clear. Liver parenchyma appears relatively normal and without focal hepatic lesion identified. Spleen, pancreas, gallbladder, bilateral adrenal glands and kidneys are normal. The enteric system is without obstruction or acute inflammatory process. Scattered sigmoid diverticula noted without acute diverticulitis. Pelvis demonstrates normal bladder and evidence of prior hysterectomy. No pelvic mass lesion/recurrence noted. No pelvic adenopathy. No intraperitoneal or retroperitoneal adenopathy. No ascites. No free air. Abdominal aorta and vasculature grossly normal. Musculoskeletal structures intact without focal osseous abnormality. Impression: 1. Evidence of prior hysterectomy. No recurrent or metastatic disease identified within the pelvis. No adenopathy. No ascites. 2. Few scattered sigmoid diverticula without acute diverticulitis. Electronically Signed by Kiran Mcallister MD 08/17/2019 04:04 P
== END ==
LOC: M RAD 14:46
PROVIDERS: ATTEND Internal Medicine Medical Oncology
DX: C50.919 Malignant neoplasm of unspecified site of unspecified female breast (principal); K57.30 Diverticulosis of large intestine without perforation or abscess without bleeding
CPT/HCPCS: 74177; Q9963; Q9967

== ENCOUNTER → 2019-08-21 | Outpatient (CLI) | payer MEDICARE ==
[~2019-08-21] MED LIST changes: -GASTROGRAFIN SOLUTION 30ML (Q9963) As Ordered ONE; -ISOVUE-370 76% 100ML VIAL (Q9967) As Ordered ONE
--- NOTE | 2019-08-21 11:57 | REP ---
Digital diagnostic unilateral left breast mammography with CAD: 3-D tomography. History: History of left breast cancer diagnosed November 2018 status post lumpectomy and radiation therapy. Left breast pain. Comparison mammography November 10, 2018, April 16, 2017, and November 27, 2010. Findings: There is an area of postoperative fibrosis in the left breast superiorly as expected post lumpectomy. There is fat density radiolucency centrally in the area of fibrosis question mild postoperative fat necrosis. There is no evidence of residual or recurrent mass. There is a surgical clip in the axillary region on MLO view. No other evidence of mass, architectural distortion, or microcalcification is seen. There is some upper outer quadrant vascular calcification. Impression: BIRADS 2: BI-RADS/ACR category 2 mammogram. Benign Findings. BIRADS category 2 benign findings. Postoperative changes in the left breast superiorly. Bilateral screening mammography can be resumed. Clinical followup is advised. This mammogram was interpreted with the aid of an FDA-approved computer-aided detection system. The patient states she had a clinical breast exam in August 2019. The patient letter being requested is m2.
== END ==
LOC: M WHC 10:37
PROVIDERS: ATTEND Internal Medicine Medical Oncology
DX: N64.4 Mastodynia (principal); Z85.3 Personal history of malignant neoplasm of breast
CPT/HCPCS: 77065; G0279

== ENCOUNTER → 2019-08-25 | Outpatient (CLI) | payer MEDICARE ==
--- NOTE | 2019-08-25 09:31 | REP ---
Clinical: Preoperative assessment . Comparison: 08/01/2015 . Technique: PA and lateral. Findings: The mediastinum and cardiac silhouette are normal. The lung sarabia are clear and without acute consolidation, effusion, or pneumothorax. The skeletal structures are intact and normal. Impression: 1. No acute cardiopulmonary process. Electronically Signed by Kiran Mcallister MD 08/25/2019 09:23 A
--- NOTE | 2019-08-25 10:01 | ECGEPIP ---
[facility] Test Date: 2019-08-25 Pat Name: ESE VIDES Department: Room: - Gender: Female Hall Supervisor: BANDAR : 1950 Requested By: Donovan Pedersen Order Number: [id number] Reading MD: Nina Ambrose Measurements Intervals [place] Rate: 60 P: 41 SD: 163 QRS: -14 QRSD: 91 T: 0 QT: 410 QTc: 411 Interpretive Statements SINUS RHYTHM Left axis deviation NO PRIOR Electronically Signed on 08-25-2019 10:00:48 EST by Nina Ambrose
== END ==
LOC: M EKG 08:48
PROVIDERS: ATTEND Podiatrist
DX: M20.11 Hallux valgus (acquired), right foot (principal); M20.41 Other hammer toe(s) (acquired), right foot; M79.671 Pain in right foot

== ENCOUNTER → 2019-08-26 | Outpatient (CLI) | payer MEDICARE ==
[2019-08-26 09:07] LABS: BASO % 0.3 % (0.0-1.0); EOS # 0.2 10^3/uL (0.0-0.5); EOS % 2.3 % (0.0-3.0); HEMATOCRIT 41.6 % (36.0-47.0); HEMOGLOBIN 13.2 g/dl (12.0-15.5); LYMPH # 0.7 10^3/uL (1.5-5.0); MEAN CORPUSCULAR HEMOGLOBIN 30.1 pg (27.0-33.0); MEAN CORPUSCULAR HGB CONC 31.7 g/dl (32.0-36.5); MEAN CORPUSCULAR VOLUME 94.8 fl (80.0-96.0); MONO # 0.7 10^3/uL (0.0-0.8); MONO % 9.9 % (0.0-5.0); NEUTROPHILS % 75.6 % (36.0-66.0); PLATELET COUNT, AUTOMATED 209 10^3/uL (150-450); RED BLOOD COUNT 4.39 10^6/uL (4.00-5.40); WHITE BLOOD COUNT 6.6 10^3/uL (4.0-10.0)
[2019-08-26 09:43] LABS: ALBUMIN 3.5 GM/DL (3.2-5.2); ALT/SGPT 27 U/L (12-78); BILIRUBIN,TOTAL 0.5 MG/DL (0.2-1.0); BLOOD UREA NITROGEN 15 MG/DL (7-18); CALCIUM LEVEL 9.4 MG/DL (8.8-10.2); CARBON DIOXIDE LEVEL 28 MEQ/L (21-32); CHLORIDE LEVEL 106 MEQ/L (98-107); CREATININE FOR GFR 0.74 MG/DL (0.55-1.30); GLOMERULAR FILTRATION RATE > 60.0 (>45); GLUCOSE, FASTING 96 MG/DL (70-100); POTASSIUM SERUM 4.3 MEQ/L (3.5-5.1); SODIUM LEVEL 142 MEQ/L (136-145); TOTAL PROTEIN 7.1 GM/DL (6.4-8.2)
== END ==
LOC: M LAB 08:24
PROVIDERS: ATTEND Podiatrist
DX: M20.11 Hallux valgus (acquired), right foot (principal); M20.41 Other hammer toe(s) (acquired), right foot; M79.671 Pain in right foot

== ENCOUNTER 2019-09-01 05:34 | Day surgery (SDC) | payer MEDICARE ==
[~2019-09-01] VITALS: Ht 160 cm; Wt 124.3 kg
[2019-09-01] MEDS ORDERED: LR 1,000 ML IV ONE (06:00)
[2019-09-01] MEDS ORDERED: ceFAZolin SOD 2 GM in IV 1 EA IV ONE (06:00)
[2019-09-01] MEDS ORDERED: HM V4000 PO (06:25)
[2019-09-01] MEDS ORDERED: DOXY100T27 PO (06:25)
[2019-09-01] MEDS ORDERED: BENZ-18 PO (06:25)
[2019-09-01] MEDS ORDERED: VITA500C24 PO (06:25)
[2019-09-01] MEDS ORDERED: dexameTHASONE 4 MG/ML 1ML VIAL (J1100) As Ordered ONE ×2 (07:09→07:54)
[2019-09-01] MEDS ORDERED: LIDOCAINE 2% MDV 20 ML VIAL As Ordered ONE (07:09)
[2019-09-01] MEDS ORDERED: BUPIVACAINE HCL 0.5% 30 ML VIAL As Ordered ONE (07:09)
[2019-09-01] MEDS ORDERED: BACITRACIN PWD 50,000 UNITS VIAL As Ordered ONE (07:09)
[2019-09-01] MEDS ORDERED: LIDOCAINE 2% INJ 100 MG/5 ML SDV (FOR ANES.) As Ordered ONE (07:19)
[2019-09-01] MEDS ORDERED: propofoL 200 MG/20 ML VIAL As Ordered ONE ×2 (07:19→08:12)
[2019-09-01] MEDS ORDERED: fentaNYL 100 MCG/2 ML INJECTION (J3010) As Ordered ONE (07:20)
[2019-09-01] MEDS ORDERED: MIDAZOLAM INJ 2 MG/2 ML VIAL (J2250) As Ordered ONE (07:20)
[2019-09-01] MEDS ORDERED: KETAMINE HCL 200 MG/20 ML VIAL As Ordered ONE (07:46)
[2019-09-01] MEDS ORDERED: GENTAMICIN SULF INJ 80MG/2ML VIAL (J1580) As Ordered ONE (07:54)
[2019-09-01] MEDS ORDERED: ONDANSETRON 4MG/2ML VIAL (J2405) As Ordered ONE (07:54)
[2019-09-01] MEDS ORDERED: LIDOCAINE 1% MDV 20ML VIAL As Ordered ONE (08:08)
[2019-09-01] MEDS ORDERED: ACETAMINOPHEN 1000MG 100ML IV BTL (OFIRMEV) (J0131 PER 10MG) As Ordered ONE (08:16)
[2019-09-01] MEDS ORDERED: LACRILUBE (AKWA TEARS) OPHTH OINT 3.5 GM As Ordered ONE (08:38)
--- NOTE | 2019-09-01 10:03 | REP ---
Clinical: Status post bunionectomy. Technique: AP, lateral, oblique views of the right foot. Findings: Postsurgical changes including partial amputations involving the first and second toes. Satisfactory alignment is suggested. Impression: Satisfactory alignment suggested. Postsurgical changes noted. Electronically Signed by Kiran Mcallister MD 09/01/2019 09:55 A
[2019-09-01 10:10] VITALS: BP 137/85
--- NOTE | 2019-09-04 11:14 | RO ---
DATE OF SURGERY: 09/01/2019 PREPROCEDURE DIAGNOSES: 1. Hallux valgus metatarsus primus varus deformity right foot. 2. Hammertoe deformity 2nd toe right foot. POSTPROCEDURE DIAGNOSES: 1. Hallux valgus metatarsus primus varus deformity right foot. 2. Hammertoe deformity 2nd toe right foot. PROCEDURES PERFORMED: 1. Abdoul bunionectomy and internal screw fixation 3.0 mm x 22 mm x 1 right foot. 2. Proximal interphalangeal joint arthroplasty with external wire fixation 0.045 x 1 2nd toe right foot. 3. 2nd metatarsophalangeal joint capsulotomy right foot. SURGEON: FAITH Varner ASSISTANT: None. ANESTHESIA: Local monitored anesthesia care (MAC). HEMOSTASIS: Ankle pneumatic tourniquet at 225 mmHg for 47 minutes. HARDWARE UTILIZED: 0.045 K wire and an Arthrex 3.0 x 22 mm headless compression screw. ESTIMATED BLOOD LOSS: 1 mL. IRRIGATION: Dilute bacitracin, neomycin, and polymyxin B solution. DESCRIPTION OF OPERATION: On 09/01/2019, this 68-year-old female was taken from her hospital room to the operating room and placed on the operating table in the supine position. Following the induction of intravenous (IV) sedation and local and regional anesthesia, the right lower extremity was prepped and draped in the usual aseptic manner. During this time, an ankle pneumatic tourniquet was applied over the medial and lateral malleolus. The ankle pneumatic tourniquet was rapidly inflated to 225 mmHg. The right lower extremity was returned to the operating table, sterile draping was completed, and the following procedure was performed: ABDOUL BUNIONECTOMY AND INTERNAL SCREW FIXATION RIGHT FOOT: Attention was directed to the patients right foot where there was noted to be a moderate hallux valgus deformity. At this time, a 6-cm incision was placed over the first metatarsophalangeal joint medial to the extensor tendon. The incision was deepened through subcutaneous tissues, and all coursing venous tributaries were identified, underscored, clamped, cut, ligated, and electrocoagulated as necessary. A linear capsulotomy was performed in the same plane as the original skin incision. The capsule and periosteal structures were dissected free in one continuous layer dorsally, medially, and laterally, thus creating a capsule and periosteal-type envelope. This brought into view the hypertrophied medial eminence of the 1st metatarsal, which was osteotomized from dorsal to proximal through and through. Attention was then directed to the 1st intermetatarsal space where the conjoined tendon was sharply dissected free from the fibular sesamoid. Attention was then directed to the medial surface of the 1st metatarsal, where a V-shaped osteotomy was performed with a long plantar and a short dorsal wing. Upon creation of this osteotomy, the capital fragment was transposed 40% of the width of the shaft of the 1st metatarsal and fixated with a 3.0 x 22 mm headless compression screw. The osteotomy was noted to be stable in all three cardinal planes, and the screw did not penetrate the inferior cartilage on direct visualization. The redundant cortical spike was then osteotomized from dorsal to plantar through and through. The medial surface was rasped to a smooth contour with a handheld rasp. The wound was flushed with copious amounts of dilute bacitracin, neomycin, and polymyxin B solution. Attention was directed towards closure of the capsular structure, which was coapted and maintained utilizing 2-0 Monocryl in a simple interrupted-type fashion. The subcutaneous tissues were coapted and maintained utilizing 4-0 Monocryl in a simple interrupted-type fashion. The skin incision was coapted and maintained utilizing 5-0 Monocryl in a continuous subcuticular-type fashion. This was additionally reinforced with Steri-Strips. Attention was directed to the patient's 2nd toe. There was noted to be the maximum deformity at the proximal interphalangeal joint with a hyperkeratotic lesion noted medial to this lesion extending somewhat distally. At this time, a 2-cm incision was placed over the proximal interphalangeal joint, and the incision was deepened through subcutaneous tissues. A linear tenotomy and capsulotomy was then performed at the level of the proximal interphalangeal joint. The extensor expansion and farris was released from the extensor tendon. Medial and lateral collateral ligaments were sharply dissected free from the head of the proximal phalanx. An osteotomy was performed at the anatomical neck of the proximal phalanx from dorsal to plantar through and through. The articular cartilage at the base of the middle phalanx was osteotomized from dorsal to plantar through and through. There was still noted to be a dorsal contracture at the proximal interphalangeal joint. Therefore, the following procedure was performed. 2ND METATARSOPHALANGEAL JOINT CAPSULOTOMY: At this time, a stab incision was placed over the proximal interphalangeal joint. The extensor tendon was then delivered proximal to this stab incision to prevent injury during the capsulotomy. Dorsal capsulotomy was then performed. The tendon was brought back into the proximal wound. The wound was flushed with copious amounts of dilute bacitracin, neomycin, and polymyxin B solution. Utilizing a Colleen wire, the wire was driven through the middle and distal phalanx and then retrograded through the proximal phalanx into the 2nd metatarsal head utilizing C-arm imagery. The wire was then bent and cut and a protective ball placed at the distal end of the wire. Attention was then directed towards closure, where the extensor tendon was coapted and maintained utilizing 4-0 Supramid with a four-stranded Aguiar repair. The skin incision was coapted and maintained utilizing 4-0 Prolene over the 2nd metatarsophalangeal joint, as well as the 2nd toe. Following the completion of the surgical procedure, 4 mg of dexamethasone sodium phosphate was instilled proximal to the surgical site. Attention was directed towards bandaging, where a sterile compressive bandage was applied consisting of Adaptic, 4 x 4's, 4 x 4 splints, Kinga, Kerlix, and Coban. The ankle pneumatic tourniquet was rapidly deflated, and instantaneous capillary filling time was noted in digits 1 through 5 of the patients right foot. The patient, having apparently tolerated the surgical procedure well, was taken from the operating room (OR) to the recovery room for further monitoring by the anesthesia department. Postoperative instructions will be given upon discharge.
== END 2019-09-01 10:30 | disposition home or self-care (01) ==
LOC: M SDC 05:34
PROVIDERS: ATTEND Podiatrist
DX: M20.11 Hallux valgus (acquired), right foot (principal); M20.41 Other hammer toe(s) (acquired), right foot; M79.671 Pain in right foot; I10 Essential (primary) hypertension; E78.00 Pure hypercholesterolemia, unspecified; R01.1 Cardiac murmur, unspecified; K21.9 Gastro-esophageal reflux disease without esophagitis; M19.90 Unspecified osteoarthritis, unspecified site; F32.9 Major depressive disorder, single episode, unspecified; Z92.3 Personal history of irradiation; Z92.21 Personal history of antineoplastic chemotherapy; Z85.3 Personal history of malignant neoplasm of breast; Z85.42 Personal history of malignant neoplasm of other parts of uterus; Z87.891 Personal history of nicotine dependence; Z79.899 Other long term (current) drug therapy; Z79.2 Long term (current) use of antibiotics
CPT/HCPCS: 28270; 28285; 28295; 73630; 88300; C1713; J0131; J0690; J1100; J1580; J2250; J2405; J3010

== ENCOUNTER 2019-09-15 06:31 | Day surgery (SDC) | payer MEDICARE ==
[~2019-09-15] VITALS: Ht 160 cm; Wt 124.7 kg
[~2019-09-15 06:31] MED LIST changes: +BENZ-18 PO; +DOXY100T27 PO; +FLUO15CR3 EXT; +HM V4000 PO; +VITA500C24 PO
[2019-09-15] MEDS ORDERED: LR 1,000 ML IV ONE (07:00)
[2019-09-15] MEDS ORDERED: ceFAZolin SOD 2 GM in IV 1 EA IV ONE (07:00)
[2019-09-15] MEDS ORDERED: propofoL 200 MG/20 ML VIAL As Ordered ONE ×3 (07:49→10:43)
[2019-09-15] MEDS ORDERED: ONDANSETRON 4MG/2ML VIAL (J2405) As Ordered ONE (07:49)
[2019-09-15] MEDS ORDERED: LIDOCAINE 2% INJ 100 MG/5 ML SDV (FOR ANES.) As Ordered ONE (07:50)
[2019-09-15] MEDS ORDERED: MIDAZOLAM INJ 2 MG/2 ML VIAL (J2250) As Ordered ONE (08:01)
[2019-09-15] MEDS ORDERED: fentaNYL 100 MCG/2 ML INJECTION (J3010) As Ordered ONE (08:02)
[2019-09-15] MEDS ORDERED: BUPIVACAINE HCL 0.5% 30 ML VIAL As Ordered ONE (08:32)
[2019-09-15] MEDS ORDERED: dexameTHASONE 4 MG/ML 1ML VIAL (J1100) As Ordered ONE (08:33)
[2019-09-15] MEDS ORDERED: LIDOCAINE 2% MDV 20 ML VIAL As Ordered ONE (08:33)
[2019-09-15] MEDS ORDERED: BACITRACIN PWD 50,000 UNITS VIAL As Ordered ONE (08:33)
[2019-09-15] MEDS ORDERED: NEOSPORIN GU IRRIG 20 ML VIAL As Ordered ONE (08:33)
[2019-09-15] MEDS ORDERED: KETAMINE HCL 200 MG/20 ML VIAL As Ordered ONE (09:46)
[2019-09-15] MEDS ORDERED: PHENYLephrine HCL 500 MCG/5 ML (100MCG/ML) SYRINGE (J2370) As Ordered ONE (10:01)
[2019-09-15] MEDS ORDERED: ePHEDrine SULFATE 25 MG/5 ML(5MG/ML) SYRINGE As Ordered ONE (10:01)
[2019-09-15] MEDS ORDERED: BUPIVACAINE HCL 0.25% 30 ML VIAL As Ordered ONE (10:35)
--- NOTE | 2019-09-15 11:07 | REP ---
LIMITED RIGHT FOOT SERIES: Four views. A drop imaging. HISTORY: Displaced osteotomy right first metatarsal. Comparison radiographs September 01, 2019. FINDINGS: The metallic screw in the distal 1st metatarsal has been removed. Four views of the foot demonstrate this and a pin in the 2nd digit which appears to have been partially withdrawn. Fluoroscopy time is 37.6 seconds. Electronically Signed by Denzel Dorado MD 09/15/2019 06:38 P
[2019-09-15] MEDS ORDERED: ONDANSETRON 4MG/2ML VIAL (J2405) IV PRN (11:15)
[2019-09-15] MEDS ORDERED: oxyCODONE 5MG TAB PO PRN (11:15)
[2019-09-15] MEDS ORDERED: LR 1,000 ML IV SCH (11:15)
[2019-09-15 11:30] VITALS: BP 123/61
--- NOTE | 2019-09-15 13:17 | REP ---
RIGHT FOOT, THREE VIEWS: Three views of the right foot are performed. There is an overlying cast which obscures underlying osseous detail. Two metallic pins are seen in the distal first metatarsal. There is a metallic pin extending through the second toe phalanges into the head of the second metatarsal. The osseous structures are well aligned. There is moderate inferior calcaneal spurring. Electronically Signed by Nic Mays MD 09/19/2019 03:47 P
--- NOTE | 2019-09-19 00:45 | RO ---
DATE OF PROCEDURE: 09/15/2019 PREPROCEDURE DIAGNOSIS: Displaced fractured 1st metatarsal right foot. POSTPROCEDURE DIAGNOSIS: Displaced fractured 1st metatarsal right foot. PROCEDURES PERFORMED: Open reduction internal fixation with bone graft and external wire fixation 0.062 times two, right foot. SURGEON: Donovan Pedersen DPM CHIP SILO TENDER: ANESTHESIA: Local monitored anesthesia care (MAC). IRRIGATION: Dilute bacitracin, neomycin and polymyxin B solution. HEMOSTASIS: Ankle pneumatic tourniquet at 200 mmHg right ankle for 53 minutes. DESCRIPTION OF PROCEDURE: On 09/15/2019, this 68-year-old female was taken from her hospital room to the operating room and placed on the operating table in the supine position. Following the induction of IV sedation and local and regional anesthesia, right lower extremity was prepped and draped in the usual aseptic manner. Ankle pneumatic tourniquet was rapidly inflated. Attention was brought to the right 1st metatarsal incision, and the incision was reopened with a sterile scalpel. Dissection was carried down to the level of the capsule, which was cut along the previous capsulotomy. Utilizing a freer elevator, the periosteum was freed around the metatarsal head. There was a fracture noted of the dorsal osteotomy and the screw was prominent, therefore, removed. The previous was removed and placed aside for reimplantation. Upon freeing of the capital fragment, the capital fragment was then pulled to a straight position. There was noted to be a defect in the 1st metatarsal due to compression of the cancellous bone. Therefore, utilizing DBX putty, putty was placed along the compressed site, and the bone was placed to help create a spacer for the 1st metatarsal. Intraoperative C-arm imagery was utilized, showed excellent position of the capital fragment utilizing C-arm control, and since minimal stable dorsal bone was left, it was elected to place the 1st K-wire through the proximal phalanx for added stability, and this was driven across the 1st metatarsal into the 1st metatarsal. The hallux was held in a somewhat dorsiflexed position to minimize any displacement if inadvertant pressure was placed on the osteotomy. A proximal wire was then placed through the mid shaft of the 1st metatarsal into the head of the 1st metatarsal utilizing C-arm control to place the wire in the most appropriate position. These wires were then bent and a protective ball placed on the distal end. The wound was flushed with copious amounts of dilute bacitracin, neomycin and polymyxin B solution. The capsular structures were coapted and maintained with #2-0 Monocryl in a simple interrupted type fashion. Subcutaneous tissues were coapted and maintained utilizing #4-0 Monocryl in a simple interrupted type fashion. Skin incision was coapted and maintained with #3-0 nylon in a simple interrupted type fashion. Dry sterile dressing was applied followed by a well-molded fiberglass [id number] cast with the foot held at a right angle to the leg. Patient having apparently tolerated the surgical procedure well was taken from the operating room (OR) to the recovery room. Postoperatively, the patient will be placed on apixaban 2.5 mg one by mouth twice a day for 12 days for deep vein thrombosis (DVT) prophylaxis. Patient also had a thromboembolism deterrent (SUSANNA) stocking ordered for her left lower extremity. Her questions were answered.
== END 2019-09-15 11:58 | disposition home or self-care (01) ==
LOC: M SDC 06:31
PROVIDERS: ATTEND Podiatrist
DX: T84.223A Displacement of internal fixation device of bones of foot and toes, initial encounter (principal); Y79.2 Prosthetic and other implants, materials and accessory orthopedic devices associated with adverse incidents; Z98.890 Other specified postprocedural states; I10 Essential (primary) hypertension; E78.00 Pure hypercholesterolemia, unspecified; F32.9 Major depressive disorder, single episode, unspecified; R51 Headache; M19.90 Unspecified osteoarthritis, unspecified site; C50.919 Malignant neoplasm of unspecified site of unspecified female breast; Z85.42 Personal history of malignant neoplasm of other parts of uterus; Z87.891 Personal history of nicotine dependence; Z92.3 Personal history of irradiation; Z79.899 Other long term (current) drug therapy
CPT/HCPCS: 28322; 73630; 76000; C1713; C1762; J0690; J2250; J2370; J2405; J3010

== ENCOUNTER → 2019-09-26 | Outpatient (CLI) | payer MEDICARE ==
--- NOTE | 2019-09-26 10:09 | REPPI ---
Right hand series: Four views. History: Right hand pain. Findings: There are mild to moderate osteoarthritic changes at the first carpometacarpal articulation. There is mild osteoarthritic spurring at the IP joint of the thumb and the DIP joints of all four fingers. No erosive changes are seen. No fracture or other acute bony abnormality. Impression: Osteoarthritic changes. No acute bony abnormality. Electronically Signed by Denzel Dorado MD 09/26/2019 10:00 A
== END ==
LOC: M PLAIMG 09:42
PROVIDERS: ATTEND Physician Assistant
DX: M65.841 Other synovitis and tenosynovitis, right hand (principal)

== ENCOUNTER → 2019-10-24 | Outpatient (CLI) | payer MEDICARE ==
[2019-10-24 10:53] LABS: BASO % 0.4 % (0.0-1.0); EOS # 0.2 10^3/uL (0.0-0.5); EOS % 2.3 % (0.0-3.0); LYMPH # 0.9 10^3/uL (1.5-5.0); LYMPH % 12.8 % (24.0-44.0); MEAN CORPUSCULAR HEMOGLOBIN 29.4 pg (27.0-33.0); MONO # 0.7 10^3/uL (0.0-0.8); MONO % 9.8 % (0.0-5.0); NEUTROPHILS # 5.2 10^3/uL (1.5-8.5); NEUTROPHILS % 74.6 % (36.0-66.0); PLATELET COUNT, AUTOMATED 287 10^3/uL (150-450); RED BLOOD COUNT 4.42 10^6/uL (4.00-5.40)
[2019-10-24 11:15] LABS: HEMOGLOBIN A1c 6.3 %
[2019-10-24 11:21] LABS: ALBUMIN 3.5 GM/DL (3.2-5.2); ALT/SGPT 21 U/L (12-78); BILIRUBIN,TOTAL 0.6 MG/DL (0.2-1.0); BLOOD UREA NITROGEN 18 MG/DL (7-18); CALCIUM LEVEL 9.7 MG/DL (8.8-10.2); CARBON DIOXIDE LEVEL 30 MEQ/L (21-32); CHLORIDE LEVEL 103 MEQ/L (98-107); CREATININE FOR GFR 0.67 MG/DL (0.55-1.30); GLOMERULAR FILTRATION RATE > 60.0 (>45); GLUCOSE, FASTING 92 MG/DL (70-100); POTASSIUM SERUM 4.1 MEQ/L (3.5-5.1); SODIUM LEVEL 139 MEQ/L (136-145); TOTAL PROTEIN 7.5 GM/DL (6.4-8.2)
== END ==
LOC: M PLALAB 08:05
PROVIDERS: ATTEND Family Medicine
DX: I10 Essential (primary) hypertension (principal); R73.03 Prediabetes

== ENCOUNTER → 2019-12-08 | Outpatient (CLI) | payer MEDICARE ==
[~2019-12-08] MED LIST changes: +GASTROGRAFIN SOLUTION 30ML (Q9963) As Ordered ONE; +ISOVUE-370 76% 100ML VIAL As Ordered ONE
--- NOTE | 2019-12-08 16:14 | REP ---
CT CHEST WITH IV CONTRAST: TECHNIQUE: Axial contrast-enhanced images from the thoracic inlet to the upper abdomen using 100 mL Isovue-370 intravenous contrast material with multiplanar reformations. COMPARISON: 09/16/2015 The lungs are free of infiltrate or suspicious nodular opacity. There is no evidence of mediastinal, hilar or chest wall lymphadenopathy. There is no pleural or pericardial effusion. The heart is mildly enlarged. Thoracic aorta demonstrates no evidence of aneurysm or dissection. There are degenerative changes of the spine. IMPRESSION: Mild cardiomegaly. No evidence of adenopathy. No suspicious pulmonary nodule. Electronically Signed by Nic Mays MD 12/08/2019 10:24 P
--- NOTE | 2019-12-08 16:25 | REP ---
CT ABDOMEN AND PELVIS WITH ORAL AND IV CONTRAST: COMPARISON: 08/16/2019 Liver, spleen, adrenals, pancreas and kidneys are unremarkable with no mass. No hydronephrosis is seen bilaterally. There is no abdominal aortic aneurysm. There is no evidence of adenopathy in the abdomen or pelvis. There is no free air or free fluid. There is no bowel wall thickening. The patient has had a prior hysterectomy. No pelvic mass is seen. Urinary bladder is mildly distended and appears unremarkable. There are mild degenerative changes of the spine. IMPRESSION: Status post prior hysterectomy. No evidence of mass or adenopathy in the abdomen or pelvis. No free air or free fluid. No bowel wall thickening. Electronically Signed by Nic Mays MD 12/08/2019 10:24 P
== END ==
LOC: M RAD 11:27
PROVIDERS: ATTEND Internal Medicine Medical Oncology
DX: L29.9 Pruritus, unspecified (principal); I51.7 Cardiomegaly; Z90.710 Acquired absence of both cervix and uterus
CPT/HCPCS: 71260; 74177; Q9963; Q9967

== ENCOUNTER → 2020-01-29 | Outpatient (CLI) | payer MEDICARE ==
[~2020-01-29] MED LIST changes: -GASTROGRAFIN SOLUTION 30ML (Q9963) As Ordered ONE; -ISOVUE-370 76% 100ML VIAL As Ordered ONE
[2020-01-29 12:31] LABS: HEMOGLOBIN A1c 5.9 %
[2020-01-29 12:39] LABS: BLOOD UREA NITROGEN 12 MG/DL (7-18); CALCIUM LEVEL 9.4 MG/DL (8.8-10.2); CARBON DIOXIDE LEVEL 30 MEQ/L (21-32); CHLORIDE LEVEL 106 MEQ/L (98-107); CHOLESTEROL LEVEL 158 MG/DL (<200); CHOLESTEROL RISK RATIO 2.677 (<5); CREATININE FOR GFR 0.74 MG/DL (0.55-1.30); GLOMERULAR FILTRATION RATE > 60.0 (>45); GLUCOSE, FASTING 88 MG/DL (70-100); HDL CHOLESTEROL 59 MG/DL (>40); LDL CHOLESTEROL 85 MG/DL (<100); NON-HDL-C 99 MG/DL; POTASSIUM SERUM 4.4 MEQ/L (3.5-5.1); SODIUM LEVEL 143 MEQ/L (136-145); TRIGLYCERIDES LEVEL 71 MG/DL (<150)
== END ==
LOC: M PLALAB 08:14
PROVIDERS: ATTEND Physician Assistant
DX: R73.03 Prediabetes (principal); E78.00 Pure hypercholesterolemia, unspecified

== ENCOUNTER → 2020-02-23 | Outpatient (CLI) | payer MEDICARE | LOC: M WHC 16:03 | PROVIDERS: ATTEND Internal Medicine Medical Oncology | DX: M81.0 Age-related osteoporosis without current pathological fracture (principal) ==

== ENCOUNTER 2020-03-07 08:26 | Emergency (ER) | payer OTHER, MEDICARE ==
[~2020-03-07] VITALS: Ht 160 cm; Wt 129.7 kg
[2020-03-07 13:08] VITALS: BP 133/88
--- NOTE | 2020-03-17 17:41 | REP ---
RIGHT HUMERUS: TWO VIEWS. Preliminary report is provided at the time of exam by [facility]. HISTORY: Pain in the upper arm. Injury in a fall. FINDINGS: AP and lateral views of the right humerus demonstrate normal bones, joints, and soft tissues. No fracture or subluxation is seen. IMPRESSION: No fracture noted. MTDD
== END 2020-03-07 13:10 | disposition home or self-care (01) ==
LOC: M ED 08:26
DX: S80.02XA Contusion of left knee, initial encounter (principal); S46.911A Strain of unspecified muscle, fascia and tendon at shoulder and upper arm level, right arm, initial encounter; W01.0XXA Fall on same level from slipping, tripping and stumbling without subsequent striking against object, initial encounter; Y92.89 Other specified places as the place of occurrence of the external cause; Y99.0 Civilian activity done for income or pay

== ENCOUNTER → 2020-03-19 | Outpatient (CLI) | payer MEDICARE ==
--- NOTE | 2020-04-04 13:50 | DEXA ---
AP SPINE L1 - L4 1.097 -0.8 0.8 LT FEMUR TOTAL 0.952 -0.4 0.9 LT NECK 0.901 -1.0 0.6 RT FEMUR TOTAL 0.973 -0.3 1.0 RT NECK 0.870 -1.2 0.3 TOTAL BODY TOTAL OTHER COMMENTS: Normal bone densitometry of the spine. There is low bone density of the hips. The density of the spine has decreased 1.7% since 02/21/2019. The density of the left hip has decreased 9.1% since 02/21/2019. The density of the right hip has decreased 6.6% since 02/21/2019. The decreased density of the spine does not represent significant change. The decreased density of the left hip does represent significant change. The decreased density of the right hip does represent a significant change. FOLLOW-UP: Recommendation for the next bone density exam: 2 years. ANDREW
== END ==
LOC: M WHC 12:40
PROVIDERS: ATTEND Internal Medicine Medical Oncology
DX: C50.919 Malignant neoplasm of unspecified site of unspecified female breast (principal); Z79.811 Long term (current) use of aromatase inhibitors; M85.80 Other specified disorders of bone density and structure, unspecified site

== ENCOUNTER → 2020-07-24 | Outpatient (CLI) | payer MEDICARE ==
[~2020-07-24] MED LIST changes: +D31000TA2 PO
[2020-07-24 12:28] LABS: ALBUMIN 3.5 GM/DL (3.2-5.2); ALT/SGPT 30 U/L (12-78); BILIRUBIN,TOTAL 0.8 MG/DL (0.2-1.0); BLOOD UREA NITROGEN 20 MG/DL (7-18); CALCIUM LEVEL 9.6 MG/DL (8.8-10.2); CARBON DIOXIDE LEVEL 32 MEQ/L (21-32); CHLORIDE LEVEL 103 MEQ/L (98-107); CREATININE FOR GFR 0.71 MG/DL (0.55-1.30); GLOMERULAR FILTRATION RATE > 60.0 (>45); GLUCOSE, FASTING 82 MG/DL (70-100); POTASSIUM SERUM 4.4 MEQ/L (3.5-5.1); SODIUM LEVEL 139 MEQ/L (136-145); TOTAL PROTEIN 7.1 GM/DL (6.4-8.2)
[2020-07-24 13:21] LABS: HEMOGLOBIN A1c 5.9 %
== END ==
LOC: M PLALAB 08:34
PROVIDERS: ATTEND Physician Assistant
DX: R73.03 Prediabetes (principal); Z79.899 Other long term (current) drug therapy

== ENCOUNTER → 2020-08-14 | Outpatient (CLI) | payer MEDICARE ==
[~2020-08-14] MED LIST changes: +HYDR-3490 PO; -HYDR25TAB PO; +LISI10TA22 PO; -LISI10TA4 PO
--- NOTE | 2020-08-14 12:27 | REP ---
INDICATION: BREAST CA, LOW BACK PAIN. COMPARISON: None. TECHNIQUE/RADIOTRACER AND DOSE: 22.0 mCi of Technetium-99m MDP was injected and standard whole-body bone scanning is acquired. FINDINGS: There is a normal distribution of skeletal tracer with uptake in bilateral kidneys and in the urinary bladder. There is no evidence to suggest skeletal metastatic disease. There is mild arthritic uptake in the medial compartment of each knee, bilaterally in the acromioclavicular joints, and in each mid foot. There is artifactual exacerbation of calvarial uptake diffusely due to patient body habitus and technical acquisition parameters. No calvarial lesion is suspected. There is mild degenerative uptake in the thoracic spine. IMPRESSION: No evidence to suggest skeletal metastatic disease.. <Electronically signed by Rayo Dorado > 08/14/20 [id number]
== END ==
LOC: M RAD 07:38
PROVIDERS: ATTEND Internal Medicine Medical Oncology
DX: M54.5 Low back pain (principal); C50.919 Malignant neoplasm of unspecified site of unspecified female breast
CPT/HCPCS: 78306; A9503

== ENCOUNTER → 2020-08-21 | Outpatient (CLI) | payer MEDICARE ==
[~2020-08-21] MED LIST changes: +CEPH500C PO; +OMEP40CA97 PO; +VITA50005 PO
--- NOTE | 2020-08-21 15:03 | REP ---
INDICATION: PAIN REDNESS SORENESS. History of breast carcinoma post lumpectomy scar at approximately 11 o'clock. History radiation. COMPARISON: Comparison left breast mammography from 1 year ago, 08/21/2019.. TECHNIQUE: Targeted left breast sonography is performed. FINDINGS: Scanning in the area the raise bump in the superomedial quadrant of the left breast at the 11 o'clock position demonstrates a subtle hypoechoic area immediately beneath the epidermis within the scan measuring 1 mm in thickness by 4 x 3 mm in transverse dimension. The visualized breast parenchymal tissue is unremarkable. IMPRESSION: Subtle blister-like superficial dermal lesion in the skin 4 x 3 x 1 mm. Uncertain significance. Correlate with clinical findings. <Electronically signed by Rayo Dorado > 08/21/20 1500
== END ==
LOC: M RAD 12:40
PROVIDERS: ATTEND Internal Medicine Medical Oncology
DX: R92.8 Other abnormal and inconclusive findings on diagnostic imaging of breast (principal); N63.22 Unspecified lump in the left breast, upper inner quadrant; Z85.3 Personal history of malignant neoplasm of breast; Z92.3 Personal history of irradiation

== ENCOUNTER → 2020-11-01 | Outpatient (CLI) | payer MEDICARE ==
[2020-11-01 10:11] LABS: BASO % 0.5 % (0.0-1.0); EOS # 0.2 10^3/uL (0.0-0.5); EOS % 2.7 % (0.0-3.0); HEMATOCRIT 42.1 % (36.0-47.0); LYMPH % 12.7 % (24.0-44.0); MEAN CORPUSCULAR HEMOGLOBIN 28.8 pg (27.0-33.0); MEAN CORPUSCULAR HGB CONC 30.9 g/dl (32.0-36.5); MEAN CORPUSCULAR VOLUME 93.1 fl (80.0-96.0); MONO # 0.9 10^3/uL (0.0-0.8); MONO % 10.8 % (2.0-8.0); NEUTROPHILS # 5.8 10^3/uL (1.5-8.5); PLATELET COUNT, AUTOMATED 269 10^3/uL (150-450); RED BLOOD COUNT 4.52 10^6/uL (4.00-5.40); WHITE BLOOD COUNT 7.9 10^3/uL (4.0-10.0)
[2020-11-01 10:28] LABS: ALBUMIN 3.4 GM/DL (3.2-5.2); ALT/SGPT 25 U/L (12-78); BILIRUBIN,TOTAL 0.6 MG/DL (0.2-1.0); BLOOD UREA NITROGEN 20 MG/DL (7-18); CALCIUM LEVEL 9.3 MG/DL (8.8-10.2); CARBON DIOXIDE LEVEL 32 MEQ/L (21-32); CHLORIDE LEVEL 104 MEQ/L (98-107); CREATININE FOR GFR 0.62 MG/DL (0.55-1.30); GLOMERULAR FILTRATION RATE > 60.0 (>45); GLUCOSE, FASTING 98 MG/DL (70-100); POTASSIUM SERUM 4.6 MEQ/L (3.5-5.1); SODIUM LEVEL 139 MEQ/L (136-145); TOTAL PROTEIN 7.2 GM/DL (6.4-8.2)
[2020-11-01 10:58] LABS: HEMOGLOBIN A1c 5.8 %
[2020-11-01 15:49] LABS: TOTAL 25(OH) VITAMIN D 30.5 NG/ML (30.0-100.0)
== END ==
LOC: M PLALAB 08:09
PROVIDERS: ATTEND Family Medicine
DX: I10 Essential (primary) hypertension (principal); R73.03 Prediabetes; E55.9 Vitamin D deficiency, unspecified; E78.00 Pure hypercholesterolemia, unspecified; Z79.899 Other long term (current) drug therapy

== ENCOUNTER → 2021-01-30 | Outpatient (CLI) | payer MEDICARE ==
[~2021-01-30] MED LIST changes: +CLOT1CRE56 TOP; +ERGO500029 PO; +LEVO-89 PO; +LEVO100T5 PO; +OMEP40CA4 PO; -OMEP40CA97 PO; -VITA50005 PO
[2021-01-30 11:22] LABS: FREE T4 1.4 NG/DL (0.76-1.46); THYROID STIMULATING HORMONE 0.026 uIU/ML (0.358-3.740)
== END ==
LOC: M LAB 10:12
PROVIDERS: ATTEND Physician Assistant
DX: E03.9 Hypothyroidism, unspecified (principal)

== ENCOUNTER → 2021-04-01 | Outpatient (REF) | payer MEDICARE | LOC: M LAB REF 17:23 | PROVIDERS: ATTEND Physician Assistant | DX: N39.0 Urinary tract infection, site not specified (principal) ==

== ENCOUNTER → 2021-05-05 | Outpatient (CLI) | payer MEDICARE ==
[~2021-05-05] MED LIST changes: -IBUP200T45 PO; +IBUP200T46 PO
[2021-05-05 11:02] LABS: BASO # 0.1 10^3/uL (0.0-0.2); BASO % 0.6 % (0.0-1.0); EOS # 0.2 10^3/uL (0.0-0.5); EOS % 2.7 % (0.0-3.0); HEMATOCRIT 40.6 % (36.0-47.0); HEMOGLOBIN 12.7 g/dl (12.0-15.5); LYMPH # 1.3 10^3/uL (1.5-5.0); LYMPH % 16.5 % (24.0-44.0); MEAN CORPUSCULAR HEMOGLOBIN 28.6 pg (27.0-33.0); MEAN CORPUSCULAR HGB CONC 31.3 g/dl (32.0-36.5); MEAN CORPUSCULAR VOLUME 91.4 fl (80.0-96.0); MONO % 11.9 % (2.0-8.0); NEUTROPHILS # 5.5 10^3/uL (1.5-8.5); NEUTROPHILS % 67.8 % (36.0-66.0); PLATELET COUNT, AUTOMATED 265 10^3/uL (150-450); RED BLOOD COUNT 4.44 10^6/uL (4.00-5.40); WHITE BLOOD COUNT 8.1 10^3/uL (4.0-10.0)
[2021-05-05 11:43] LABS: ALT/SGPT 41 U/L (12-78); BILIRUBIN,TOTAL 0.3 MG/DL (0.2-1.0); BLOOD UREA NITROGEN 17 MG/DL (7-18); CALCIUM LEVEL 8.8 MG/DL (8.8-10.2); CARBON DIOXIDE LEVEL 33 MEQ/L (21-32); CHLORIDE LEVEL 106 MEQ/L (98-107); CREATININE FOR GFR 0.76 MG/DL (0.55-1.30); FREE T4 1.04 NG/DL (0.76-1.46); GLOMERULAR FILTRATION RATE > 60.0 (>45); GLUCOSE, FASTING 122 MG/DL (70-100); POTASSIUM SERUM 3.9 MEQ/L (3.5-5.1); SODIUM LEVEL 140 MEQ/L (136-145); THYROID STIMULATING HORMONE 0.194 uIU/ML (0.358-3.740); TOTAL PROTEIN 7.1 GM/DL (6.4-8.2)
== END ==
LOC: M LAB 10:02
PROVIDERS: ATTEND Family Medicine
DX: E03.9 Hypothyroidism, unspecified (principal); R73.03 Prediabetes

== ENCOUNTER → 2021-08-13 | Outpatient (CLI) | payer MEDICARE ==
[2021-08-13 08:33] LABS: BASO % 0.3 % (0.0-1.0); EOS # 0.1 10^3/uL (0.0-0.5); EOS % 1.8 % (0.0-3.0); HEMATOCRIT 42.7 % (36.0-47.0); HEMOGLOBIN 13.6 g/dl (12.0-15.5); LYMPH # 1.1 10^3/uL (1.5-5.0); LYMPH % 14.2 % (24.0-44.0); MEAN CORPUSCULAR HEMOGLOBIN 28.7 pg (27.0-33.0); MEAN CORPUSCULAR HGB CONC 31.9 g/dl (32.0-36.5); MEAN CORPUSCULAR VOLUME 90.1 fl (80.0-96.0); MONO # 0.8 10^3/uL (0.0-0.8); MONO % 10.1 % (2.0-8.0); NEUTROPHILS # 5.7 10^3/uL (1.5-8.5); NEUTROPHILS % 73.3 % (36.0-66.0); PLATELET COUNT, AUTOMATED 261 10^3/uL (150-450); RED BLOOD COUNT 4.74 10^6/uL (4.00-5.40); WHITE BLOOD COUNT 7.8 10^3/uL (4.0-10.0)
[2021-08-13 08:48] LABS: ALBUMIN 3.5 GM/DL (3.2-5.2); ALT/SGPT 26 U/L (12-78); BILIRUBIN,TOTAL 0.5 MG/DL (0.2-1.0); BLOOD UREA NITROGEN 24 MG/DL (7-18); CALCIUM LEVEL 9.3 MG/DL (8.8-10.2); CARBON DIOXIDE LEVEL 28 MEQ/L (21-32); CHLORIDE LEVEL 105 MEQ/L (98-107); CHOLESTEROL LEVEL 151 MG/DL (<200); CHOLESTEROL RISK RATIO 2.475 (<5); CREATININE FOR GFR 0.77 MG/DL (0.55-1.30); FREE T4 1.26 NG/DL (0.76-1.46); GLOMERULAR FILTRATION RATE > 60.0 (>45); GLUCOSE, FASTING 107 MG/DL (70-100); HDL CHOLESTEROL 61 MG/DL (>40); LDL CHOLESTEROL 75 MG/DL (<100); NON-HDL-C 90 MG/DL; POTASSIUM SERUM 4.1 MEQ/L (3.5-5.1); SODIUM LEVEL 140 MEQ/L (136-145); THYROID STIMULATING HORMONE 0.328 uIU/ML (0.358-3.740); TOTAL PROTEIN 7.4 GM/DL (6.4-8.2); TRIGLYCERIDES LEVEL 76 MG/DL (<150)
[2021-08-13 08:50] LABS: TOTAL 25(OH) VITAMIN D 40.4 NG/ML (30.0-100.0)
[2021-08-13 09:01] LABS: HEMOGLOBIN A1c 6.1 %
== END ==
LOC: M LAB 07:05
PROVIDERS: ATTEND Physician Assistant
DX: I10 Essential (primary) hypertension (principal); K21.9 Gastro-esophageal reflux disease without esophagitis; E55.9 Vitamin D deficiency, unspecified; R73.03 Prediabetes; Z79.899 Other long term (current) drug therapy

== ENCOUNTER → 2021-11-11 | Outpatient (CLI) | payer MEDICARE ==
[~2021-11-11] MED LIST changes: -D31000TA2 PO; +VITA100093 PO
[2021-11-11 07:24] LABS: BASO % 0.3 % (0.0-1.0); EOS # 0.2 10^3/uL (0.0-0.5); EOS % 2.3 % (0.0-3.0); HEMATOCRIT 41.3 % (36.0-47.0); HEMOGLOBIN 12.9 g/dl (12.0-15.5); LYMPH # 1.2 10^3/uL (1.5-5.0); LYMPH % 16.3 % (24.0-44.0); MEAN CORPUSCULAR HEMOGLOBIN 28.3 pg (27.0-33.0); MEAN CORPUSCULAR HGB CONC 31.2 g/dl (32.0-36.5); MEAN CORPUSCULAR VOLUME 90.6 fl (80.0-96.0); MONO # 0.8 10^3/uL (0.0-0.8); MONO % 9.9 % (2.0-8.0); NEUTROPHILS # 5.4 10^3/uL (1.5-8.5); NEUTROPHILS % 70.9 % (36.0-66.0); PLATELET COUNT, AUTOMATED 295 10^3/uL (150-450); RED BLOOD COUNT 4.56 10^6/uL (4.00-5.40); WHITE BLOOD COUNT 7.5 10^3/uL (4.0-10.0)
[2021-11-11 07:40] LABS: HEMOGLOBIN A1c 6.1 %
[2021-11-11 07:54] LABS: ALBUMIN 3.2 GM/DL (3.2-5.2); ALT/SGPT 24 U/L (12-78); BILIRUBIN,TOTAL 0.4 MG/DL (0.2-1.0); BLOOD UREA NITROGEN 22 MG/DL (7-18); CALCIUM LEVEL 9.1 MG/DL (8.8-10.2); CARBON DIOXIDE LEVEL 31 MEQ/L (21-32); CHLORIDE LEVEL 106 MEQ/L (98-107); CHOLESTEROL LEVEL 147 MG/DL (<200); CHOLESTEROL RISK RATIO 2.578 (<5); GLOMERULAR FILTRATION RATE > 60.0 (>45); GLUCOSE, FASTING 110 MG/DL (70-100); HDL CHOLESTEROL 57 MG/DL (>40); LDL CHOLESTEROL 74 MG/DL (<100); NON-HDL-C 90 MG/DL; POTASSIUM SERUM 4.3 MEQ/L (3.5-5.1); SODIUM LEVEL 140 MEQ/L (136-145); TOTAL PROTEIN 6.7 GM/DL (6.4-8.2); TRIGLYCERIDES LEVEL 80 MG/DL (<150)
== END ==
LOC: M LAB 06:49
PROVIDERS: ATTEND Family Medicine
DX: E78.00 Pure hypercholesterolemia, unspecified (principal); R73.03 Prediabetes

== ENCOUNTER → 2021-12-19 | Outpatient (CLI) | payer MEDICARE | LOC: M RAD 06:44 | PROVIDERS: ATTEND Nurse Practitioner Adult Health | DX: M25.532 Pain in left wrist (principal); M79.645 Pain in left finger(s); M19.042 Primary osteoarthritis, left hand ==

== ENCOUNTER → 2022-01-08 | Outpatient (CLI) | payer MEDICARE | LOC: M PLAIMG 08:49 | PROVIDERS: ATTEND Nurse Practitioner Adult Health | DX: M25.532 Pain in left wrist (principal); M79.645 Pain in left finger(s) ==

== ENCOUNTER → 2022-03-24 | Outpatient (CLI) | payer MEDICARE ==
[2022-03-24 07:28] LABS: BASO % 0.3 % (0.0-1.0); EOS # 0.2 10^3/uL (0.0-0.5); EOS % 3.4 % (0.0-3.0); HEMATOCRIT 39.6 % (36.0-47.0); HEMOGLOBIN 12.4 g/dl (12.0-15.5); LYMPH # 1.4 10^3/uL (1.5-5.0); LYMPH % 19.8 % (24.0-44.0); MEAN CORPUSCULAR HEMOGLOBIN 28.4 pg (27.0-33.0); MEAN CORPUSCULAR HGB CONC 31.3 g/dl (32.0-36.5); MEAN CORPUSCULAR VOLUME 90.6 fl (80.0-96.0); MONO # 0.7 10^3/uL (0.0-0.8); MONO % 9.9 % (2.0-8.0); NEUTROPHILS # 4.7 10^3/uL (1.5-8.5); NEUTROPHILS % 66.3 % (36.0-66.0); PLATELET COUNT, AUTOMATED 271 10^3/uL (150-450); RED BLOOD COUNT 4.37 10^6/uL (4.00-5.40); WHITE BLOOD COUNT 7.1 10^3/uL (4.0-10.0)
[2022-03-24 07:51] LABS: HEMOGLOBIN A1c 5.8 %
[2022-03-24 08:08] LABS: ALBUMIN 3.5 GM/DL (3.2-5.2); ALT/SGPT 25 U/L (12-78); BILIRUBIN,TOTAL 0.5 MG/DL (0.2-1.0); BLOOD UREA NITROGEN 28 MG/DL (7-18); CALCIUM LEVEL 9.8 MG/DL (8.8-10.2); CARBON DIOXIDE LEVEL 31 MEQ/L (21-32); CHLORIDE LEVEL 103 MEQ/L (98-107); CHOLESTEROL LEVEL 167 MG/DL (<200); CREATININE FOR GFR 0.83 MG/DL (0.55-1.30); FREE T4 1.19 NG/DL (0.76-1.46); GLOMERULAR FILTRATION RATE > 60.0 (>45); GLUCOSE, FASTING 90 MG/DL (70-100); HDL CHOLESTEROL 63 MG/DL (>40); LDL CHOLESTEROL 85 MG/DL (<100); NON-HDL-C 104 MG/DL; POTASSIUM SERUM 4.7 MEQ/L (3.5-5.1); SODIUM LEVEL 137 MEQ/L (136-145); THYROID STIMULATING HORMONE 0.305 uIU/ML (0.358-3.740); TOTAL PROTEIN 6.9 GM/DL (6.4-8.2); TRIGLYCERIDES LEVEL 96 MG/DL (<150)
[2022-03-24 09:47] LABS: TOTAL 25(OH) VITAMIN D 46.2 NG/ML (30.0-100.0)
== END ==
LOC: M LAB 06:44
PROVIDERS: ATTEND Nurse Practitioner Adult Health
DX: R73.03 Prediabetes (principal); E03.9 Hypothyroidism, unspecified; E55.9 Vitamin D deficiency, unspecified; Z79.899 Other long term (current) drug therapy

== ENCOUNTER → 2022-06-24 | Outpatient (CLI) | payer MEDICARE ==
[2022-06-24 07:35] LABS: BASO % 0.4 % (0.0-1.0); EOS # 0.2 10^3/uL (0.0-0.5); HEMATOCRIT 40.5 % (36.0-47.0); HEMOGLOBIN 12.8 g/dl (12.0-15.5); LYMPH # 1.3 10^3/uL (1.5-5.0); LYMPH % 16.6 % (24.0-44.0); MEAN CORPUSCULAR HEMOGLOBIN 29.4 pg (27.0-33.0); MEAN CORPUSCULAR HGB CONC 31.6 g/dl (32.0-36.5); MEAN CORPUSCULAR VOLUME 92.9 fl (80.0-96.0); MONO # 0.7 10^3/uL (0.0-0.8); MONO % 9.1 % (2.0-8.0); NEUTROPHILS # 5.7 10^3/uL (1.5-8.5); NEUTROPHILS % 71.5 % (36.0-66.0); PLATELET COUNT, AUTOMATED 267 10^3/uL (150-450); RED BLOOD COUNT 4.36 10^6/uL (4.00-5.40)
[2022-06-24 08:05] LABS: ALBUMIN 3.3 G/DL (3.2-5.2); ALKALINE PHOSPHATASE 145 U/L (46-116); ALT/SGPT 23 U/L (7.0-40); AST/SGOT 21 U/L (<34); BILIRUBIN,TOTAL 0.7 MG/DL (0.3-1.2); BLOOD UREA NITROGEN 24 MG/DL (9-23); CALCIUM LEVEL 9.4 MG/DL (8.3-10.6); CARBON DIOXIDE LEVEL 30 MMOL/L (20-31); CHLORIDE LEVEL 103 MMOL/L (98-107); CHOLESTEROL LEVEL 137 MG/DL (<200); CHOLESTEROL RISK RATIO 2.45 (<5); CREATININE FOR GFR 0.77 MG/DL (0.55-1.30); GLOMERULAR FILTRATION RATE > 60.0 (>45); GLUCOSE, FASTING 84 MG/DL (74-106); HDL CHOLESTEROL 55.9 MG/DL (>40); LDL CHOLESTEROL 69.1 MG/DL (<100); NON-HDL-C 81 MG/DL; POTASSIUM SERUM 4.6 MMOL/L (3.5-5.1); SODIUM LEVEL 140 MMOL/L (136-145); TOTAL PROTEIN 6.9 G/DL (5.7-8.2); TRIGLYCERIDES LEVEL 60 MG/DL (<150)
[2022-06-24 08:08] LABS: FREE T4 1.54 NG/DL (0.89-1.76); THYROID STIMULATING HORMONE 2.662 uIU/ML (0.55-4.78)
[2022-06-24 08:09] LABS: TOTAL 25(OH) VITAMIN D 52.6 NG/ML (20.0-100.0)
[2022-06-24 09:25] LABS: HEMOGLOBIN A1c 5.4 % (4.0-6.0)
== END ==
LOC: M LAB 06:47
PROVIDERS: ATTEND Nurse Practitioner Adult Health
DX: R73.03 Prediabetes (principal); E78.00 Pure hypercholesterolemia, unspecified; E03.9 Hypothyroidism, unspecified; E55.9 Vitamin D deficiency, unspecified; Z79.899 Other long term (current) drug therapy

== ENCOUNTER → 2022-07-08 | Outpatient (REF) | payer MEDICARE | LOC: M LAB REF 17:29 | PROVIDERS: ATTEND Nurse Practitioner Adult Health | DX: L91.9 Hypertrophic disorder of the skin, unspecified (principal); L82.0 Inflamed seborrheic keratosis ==

== ENCOUNTER → 2022-07-15 | Outpatient (CLI) | payer MEDICARE | LOC: M WHC 09:33 | PROVIDERS: ATTEND Internal Medicine | DX: Z13.820 Encounter for screening for osteoporosis (principal); C50.919 Malignant neoplasm of unspecified site of unspecified female breast; M85.851 Other specified disorders of bone density and structure, right thigh; M85.852 Other specified disorders of bone density and structure, left thigh ==

== ENCOUNTER → 2022-12-22 | Outpatient (CLI) | payer OTHER ==
[2022-12-22 07:58] LABS: BASO % 0.3 % (0.0-1.0); EOS # 0.3 10^3/uL (0.0-0.5); EOS % 4.1 % (0.0-3.0); HEMATOCRIT 37.6 % (36.0-47.0); HEMOGLOBIN 12.1 g/dl (12.0-15.5); LYMPH # 1.5 10^3/uL (1.5-5.0); LYMPH % 19.9 % (24.0-44.0); MEAN CORPUSCULAR HEMOGLOBIN 29.4 pg (27.0-33.0); MEAN CORPUSCULAR HGB CONC 32.2 g/dl (32.0-36.5); MEAN CORPUSCULAR VOLUME 91.5 fl (80.0-96.0); MONO # 0.7 10^3/uL (0.0-0.8); MONO % 9.5 % (2.0-8.0); NEUTROPHILS # 4.9 10^3/uL (1.5-8.5); NEUTROPHILS % 65.9 % (36.0-66.0); PLATELET COUNT, AUTOMATED 243 10^3/uL (150-450); RED BLOOD COUNT 4.11 10^6/uL (4.00-5.40); WHITE BLOOD COUNT 7.4 10^3/uL (4.0-10.0)
[2022-12-22 08:22] LABS: ALBUMIN 3.4 G/DL (3.2-5.2); ALKALINE PHOSPHATASE 133 U/L (46-116); ALT/SGPT 16 U/L (7.0-40); AST/SGOT 17 U/L (<34); BILIRUBIN,TOTAL 0.6 MG/DL (0.3-1.2); BLOOD UREA NITROGEN 19 MG/DL (9-23); CALCIUM LEVEL 9.3 MG/DL (8.3-10.6); CARBON DIOXIDE LEVEL 27 MMOL/L (20-31); CHLORIDE LEVEL 104 MMOL/L (98-107); CHOLESTEROL LEVEL 145 MG/DL (<200); CHOLESTEROL RISK RATIO 2.58 (<5); CREATININE FOR GFR 0.73 MG/DL (0.55-1.30); GLOMERULAR FILTRATION RATE > 60.0 (>45); GLUCOSE, FASTING 81 MG/DL (74-106); LDL CHOLESTEROL 76.6 MG/DL (<100); POTASSIUM SERUM 4.3 MMOL/L (3.5-5.1); SODIUM LEVEL 137 MMOL/L (136-145); TOTAL PROTEIN 6.5 G/DL (5.7-8.2); TRIGLYCERIDES LEVEL 62 MG/DL (<150)
[2022-12-22 08:24] LABS: FREE T4 1.17 NG/DL (0.89-1.76); THYROID STIMULATING HORMONE 0.929 uIU/ML (0.55-4.78)
[2022-12-22 09:32] LABS: HEMOGLOBIN A1c 5.4 % (4.0-6.0)
== END ==
LOC: M LAB 07:03
PROVIDERS: ATTEND Nurse Practitioner Adult Health
DX: R73.03 Prediabetes (principal); E78.00 Pure hypercholesterolemia, unspecified; E03.9 Hypothyroidism, unspecified

== ENCOUNTER → 2023-07-19 | Outpatient (CLI) | payer MEDICARE ==
[2023-07-19 07:07] LABS: BASO % 0.4 % (0.0-1.0); EOS # 0.3 10^3/uL (0.0-0.5); EOS % 3.8 % (0.0-3.0); HEMATOCRIT 40.2 % (36.0-47.0); HEMOGLOBIN 13.1 g/dl (12.0-15.5); LYMPH # 1.4 10^3/uL (1.5-5.0); LYMPH % 20.4 % (24.0-44.0); MEAN CORPUSCULAR HEMOGLOBIN 29.7 pg (27.0-33.0); MEAN CORPUSCULAR HGB CONC 32.6 g/dl (32.0-36.5); MEAN CORPUSCULAR VOLUME 91.2 fl (80.0-96.0); MONO # 0.7 10^3/uL (0.0-0.8); MONO % 10.7 % (2.0-8.0); NEUTROPHILS # 4.5 10^3/uL (1.5-8.5); NEUTROPHILS % 64.4 % (36.0-66.0); PLATELET COUNT, AUTOMATED 261 10^3/uL (150-450); RED BLOOD COUNT 4.41 10^6/uL (4.00-5.40); WHITE BLOOD COUNT 6.9 10^3/uL (4.0-10.0)
[2023-07-19 07:25] LABS: HEMOGLOBIN A1c 5.6 % (4.0-6.0)
[2023-07-19 07:32] LABS: ALBUMIN 3.5 G/DL (3.2-5.2); ALKALINE PHOSPHATASE 130 U/L (46-116); ALT/SGPT 15 U/L (7.0-40); AST/SGOT 16 U/L (<34); BILIRUBIN,TOTAL 0.7 MG/DL (0.3-1.2); BLOOD UREA NITROGEN 25 MG/DL (9-23); CALCIUM LEVEL 9.6 MG/DL (8.3-10.6); CARBON DIOXIDE LEVEL 29 MMOL/L (20-31); CHLORIDE LEVEL 104 MMOL/L (98-107); CHOLESTEROL LEVEL 176 MG/DL (<200); CHOLESTEROL RISK RATIO 2.75 (<5); CREATININE FOR GFR 0.67 MG/DL (0.55-1.30); GLOMERULAR FILTRATION RATE > 60.0 (>39); GLUCOSE, FASTING 94 MG/DL (74-106); HDL CHOLESTEROL 63.9 MG/DL (>40); LDL CHOLESTEROL 97.3 MG/DL (<100); NON-HDL-C 112.1 MG/DL; POTASSIUM SERUM 4.2 MMOL/L (3.5-5.1); SODIUM LEVEL 138 MMOL/L (136-145); TOTAL PROTEIN 6.9 G/DL (5.7-8.2); TRIGLYCERIDES LEVEL 74 MG/DL (<150)
[2023-07-19 07:36] LABS: THYROID STIMULATING HORMONE 0.957 uIU/ML (0.55-4.78)
[2023-07-19 07:37] LABS: FREE T4 0.98 NG/DL (0.89-1.76)
== END ==
LOC: M LAB 06:35
PROVIDERS: ATTEND Nurse Practitioner Adult Health
DX: R73.03 Prediabetes (principal); E78.00 Pure hypercholesterolemia, unspecified; E03.9 Hypothyroidism, unspecified; E55.9 Vitamin D deficiency, unspecified

== ENCOUNTER → 2023-08-05 | Outpatient (CLI) | payer MEDICARE | LOC: M RAD 15:21 | PROVIDERS: ATTEND Nurse Practitioner Adult Health | DX: M19.011 Primary osteoarthritis, right shoulder (principal) ==

== ENCOUNTER → 2023-08-17 | Outpatient (CLI) | payer MEDICARE, OTHER ==
[2023-08-17 08:09] LABS: BASO % 0.4 % (0.0-1.0); EOS # 0.5 10^3/uL (0.0-0.5); EOS % 6.4 % (0.0-3.0); HEMATOCRIT 39.2 % (36.0-47.0); HEMOGLOBIN 12.3 g/dl (12.0-15.5); LYMPH # 1.7 10^3/uL (1.5-5.0); LYMPH % 21.5 % (24.0-44.0); MEAN CORPUSCULAR HEMOGLOBIN 29.1 pg (27.0-33.0); MEAN CORPUSCULAR HGB CONC 31.4 g/dl (32.0-36.5); MEAN CORPUSCULAR VOLUME 92.9 fl (80.0-96.0); MONO # 0.8 10^3/uL (0.0-0.8); MONO % 10.8 % (2.0-8.0); NEUTROPHILS # 4.7 10^3/uL (1.5-8.5); NEUTROPHILS % 60.6 % (36.0-66.0); PLATELET COUNT, AUTOMATED 267 10^3/uL (150-450); RED BLOOD COUNT 4.22 10^6/uL (4.00-5.40); WHITE BLOOD COUNT 7.7 10^3/uL (4.0-10.0)
[2023-08-17 08:34] LABS: ALBUMIN 3.3 G/DL (3.2-5.2); ALKALINE PHOSPHATASE 129 U/L (46-116); ALT/SGPT 26 U/L (7.0-40); AST/SGOT 21 U/L (<34); BILIRUBIN,TOTAL 0.4 MG/DL (0.3-1.2); BLOOD UREA NITROGEN 29 MG/DL (9-23); CALCIUM LEVEL 9.1 MG/DL (8.3-10.6); CARBON DIOXIDE LEVEL 29 MMOL/L (20-31); CHLORIDE LEVEL 106 MMOL/L (98-107); CREATININE FOR GFR 0.68 MG/DL (0.55-1.30); GLOMERULAR FILTRATION RATE > 60.0 (>39); GLUCOSE, FASTING 74 MG/DL (74-106); POTASSIUM SERUM 4.7 MMOL/L (3.5-5.1); SODIUM LEVEL 140 MMOL/L (136-145); TOTAL PROTEIN 6.5 G/DL (5.7-8.2)
== END ==
LOC: M LAB 07:01
PROVIDERS: ATTEND Internal Medicine Medical Oncology
DX: C50.912 Malignant neoplasm of unspecified site of left female breast (principal)

== ENCOUNTER 2023-11-14 10:17 | Emergency (ER) | payer OTHER ==
[~2023-11-14] VITALS: Ht 160 cm; Wt 114.5 kg
[2023-11-14] MEDS ORDERED: METF500T13 (10:27)
[2023-11-14] MEDS ORDERED: MELO15TA28 (10:27)
[2023-11-14] MEDS ORDERED: LEVO100T5 (10:27)
[2023-11-14 12:34] VITALS: O2SAT 93
[2023-11-14 13:34] LABS: BASO % 0.2 % (0.0-1.0); EOS # 0.3 10^3/uL (0.0-0.5); EOS % 3.2 % (0.0-3.0); HEMATOCRIT 41.1 % (36.0-47.0); HEMOGLOBIN 13.4 g/dl (12.0-15.5); LYMPH # 1.7 10^3/uL (1.5-5.0); LYMPH % 20.6 % (24.0-44.0); MEAN CORPUSCULAR HEMOGLOBIN 29.3 pg (27.0-33.0); MEAN CORPUSCULAR HGB CONC 32.6 g/dl (32.0-36.5); MEAN CORPUSCULAR VOLUME 89.7 fl (80.0-96.0); MONO # 0.8 10^3/uL (0.0-0.8); MONO % 9.3 % (2.0-8.0); NEUTROPHILS # 5.4 10^3/uL (1.5-8.5); NEUTROPHILS % 66.5 % (36.0-66.0); PLATELET COUNT, AUTOMATED 276 10^3/uL (150-450); RED BLOOD COUNT 4.58 10^6/uL (4.00-5.40); WHITE BLOOD COUNT 8.1 10^3/uL (4.0-10.0)
[2023-11-14 13:58] LABS: ALBUMIN 3.5 G/DL (3.2-5.2); ALKALINE PHOSPHATASE 154 U/L (46-116); ALT/SGPT 26 U/L (7.0-40); AST/SGOT 28 U/L (<34); BILIRUBIN,TOTAL 0.7 MG/DL (0.3-1.2); BLOOD UREA NITROGEN 23 MG/DL (9-23); CALCIUM LEVEL 9.9 MG/DL (8.3-10.6); CARBON DIOXIDE LEVEL 28 MMOL/L (20-31); CHLORIDE LEVEL 102 MMOL/L (98-107); CREATININE FOR GFR 0.65 MG/DL (0.55-1.30); GLOMERULAR FILTRATION RATE > 60.0 (>39); GLUCOSE, FASTING 72 MG/DL (74-106); MAGNESIUM LEVEL 1.6 MG/DL (1.8-2.4); POTASSIUM SERUM 3.8 MMOL/L (3.5-5.1); SODIUM LEVEL 140 MMOL/L (136-145)
[2023-11-14 14:02] LABS: FREE T4 1.08 NG/DL (0.89-1.76); THYROID STIMULATING HORMONE 2.571 uIU/ML (0.55-4.78)
[2023-11-14 14:21] VITALS: BP 127/76; TEMP 98.1; O2SAT 100
[2023-11-14] MEDS ORDERED: BENZ200C70 PO (14:43)
== END 2023-11-14 14:50 | disposition home or self-care (01) ==
LOC: M ED 10:17
DX: U07.1 COVID-19 (principal); I51.7 Cardiomegaly; J81.0 Acute pulmonary edema; E83.42 Hypomagnesemia; Z79.899 Other long term (current) drug therapy

== ENCOUNTER → 2023-11-23 | Outpatient (CLI) | payer OTHER ==
[~2023-11-23] MED LIST changes: +BENZ200C70 PO; +LEVO100T5; +MELO15TA28; +METF500T13
== END ==
LOC: M RAD 07:22
PROVIDERS: ATTEND Nurse Practitioner Adult Health
DX: R10.2 Pelvic and perineal pain (principal)

== ENCOUNTER → 2023-12-03 | Outpatient (CLI) | payer OTHER | LOC: M PLAIMG 11:56 | PROVIDERS: ATTEND Nurse Practitioner Adult Health | DX: I11.9 Hypertensive heart disease without heart failure (principal) ==

== ENCOUNTER → 2023-12-08 | Outpatient (CLI) | payer OTHER | LOC: M RAD 07:28 | PROVIDERS: ATTEND Nurse Practitioner Adult Health | DX: I11.9 Hypertensive heart disease without heart failure (principal); Q25.46 Tortuous aortic arch ==

== ENCOUNTER → 2024-01-19 | Outpatient (CLI) | payer OTHER ==
[2024-01-19 08:10] LABS: BASO % 0.5 % (0.0-1.0); EOS # 0.4 10^3/uL (0.0-0.5); EOS % 4.3 % (0.0-3.0); HEMATOCRIT 40.5 % (36.0-47.0); HEMOGLOBIN 13.1 g/dl (12.0-15.5); LYMPH # 1.5 10^3/uL (1.5-5.0); LYMPH % 17.9 % (24.0-44.0); MEAN CORPUSCULAR HEMOGLOBIN 29.1 pg (27.0-33.0); MEAN CORPUSCULAR HGB CONC 32.3 g/dl (32.0-36.5); MONO # 0.8 10^3/uL (0.0-0.8); MONO % 9.6 % (2.0-8.0); NEUTROPHILS # 5.7 10^3/uL (1.5-8.5); PLATELET COUNT, AUTOMATED 256 10^3/uL (150-450); WHITE BLOOD COUNT 8.4 10^3/uL (4.0-10.0)
[2024-01-19 08:20] LABS: HEMOGLOBIN A1c 5.4 % (4.0-6.0)
[2024-01-19 08:37] LABS: FREE T4 1.23 NG/DL (0.89-1.76)
[2024-01-19 08:38] LABS: THYROID STIMULATING HORMONE 1.456 uIU/ML (0.55-4.78)
[2024-01-19 08:39] LABS: ALBUMIN 3.5 G/DL (3.2-5.2); ALKALINE PHOSPHATASE 138 U/L (46-116); ALT/SGPT 17 U/L (7.0-40); AST/SGOT 11 U/L (<34); BILIRUBIN,TOTAL 0.7 MG/DL (0.3-1.2); BLOOD UREA NITROGEN 22 MG/DL (9-23); CALCIUM LEVEL 9.6 MG/DL (8.3-10.6); CARBON DIOXIDE LEVEL 29 MMOL/L (20-31); CHLORIDE LEVEL 105 MMOL/L (98-107); CREATININE FOR GFR 0.78 MG/DL (0.55-1.30); GLOMERULAR FILTRATION RATE > 60.0 (>39); GLUCOSE, FASTING 95 MG/DL (74-106); POTASSIUM SERUM 4.2 MMOL/L (3.5-5.1); SODIUM LEVEL 138 MMOL/L (136-145); TOTAL PROTEIN 6.7 G/DL (5.7-8.2)
== END ==
LOC: M LAB 07:12
PROVIDERS: ATTEND Nurse Practitioner Adult Health
DX: R73.03 Prediabetes (principal)

== ENCOUNTER → 2024-02-24 | Outpatient (CLI) | payer OTHER | LOC: M PLARAD 11:27 | PROVIDERS: ATTEND Nurse Practitioner Adult Health | DX: M75.121 Complete rotator cuff tear or rupture of right shoulder, not specified as traumatic (principal); M25.511 Pain in right shoulder ==

== ENCOUNTER → 2024-07-17 | Outpatient (CLI) | payer MEDICARE, OTHER | LOC: M WHC 10:40 | PROVIDERS: ATTEND Internal Medicine Medical Oncology | DX: M85.89 Other specified disorders of bone density and structure, multiple sites (principal); Z85.3 Personal history of malignant neoplasm of breast ==

== ENCOUNTER → 2024-10-06 | Outpatient (CLI) | payer MEDICARE ==
[2024-10-06 07:50] LABS: BASO % 0.3 % (0.0-1.0); EOS # 0.3 10^3/uL (0.0-0.5); HEMATOCRIT 43.4 % (36.0-47.0); HEMOGLOBIN 13.7 g/dl (12.0-15.5); LYMPH # 1.2 10^3/uL (1.5-5.0); LYMPH % 17.3 % (24.0-44.0); MEAN CORPUSCULAR HEMOGLOBIN 28.8 pg (27.0-33.0); MEAN CORPUSCULAR HGB CONC 31.6 g/dl (32.0-36.5); MEAN CORPUSCULAR VOLUME 91.2 fl (80.0-96.0); MONO # 0.6 10^3/uL (0.0-0.8); MONO % 8.9 % (2.0-8.0); NEUTROPHILS # 4.7 10^3/uL (1.5-8.5); NEUTROPHILS % 69.4 % (36.0-66.0); PLATELET COUNT, AUTOMATED 254 10^3/uL (150-450); RED BLOOD COUNT 4.76 10^6/uL (4.00-5.40); WHITE BLOOD COUNT 6.7 10^3/uL (4.0-10.0)
[2024-10-06 08:13] LABS: ALBUMIN 3.4 G/DL (3.2-5.2); ALKALINE PHOSPHATASE 136 U/L (35-104); ALT/SGPT 21 U/L (7.0-40); AST/SGOT 20 U/L (<34); BILIRUBIN,TOTAL 0.8 MG/DL (0.3-1.2); BLOOD UREA NITROGEN 21 MG/DL (9-23); CALCIUM LEVEL 9.4 MG/DL (8.3-10.6); CARBON DIOXIDE LEVEL 28 MMOL/L (20-31); CHLORIDE LEVEL 103 MMOL/L (98-107); CHOLESTEROL LEVEL 154 MG/DL (<200); CHOLESTEROL RISK RATIO 2.46 (<5); GLOMERULAR FILTRATION RATE > 60.0 (>39); GLUCOSE, FASTING 86 MG/DL (74-106); HDL CHOLESTEROL 62.6 MG/DL (>40); LDL CHOLESTEROL 77.2 MG/DL (<100); NON-HDL-C 91.4 MG/DL; POTASSIUM SERUM 4.2 MMOL/L (3.5-5.1); SODIUM LEVEL 140 MMOL/L (136-145); TOTAL PROTEIN 6.9 G/DL (5.7-8.2); TRIGLYCERIDES LEVEL 71 MG/DL (<150)
[2024-10-06 08:14] LABS: FREE T4 1.21 NG/DL (0.89-1.76); THYROID STIMULATING HORMONE 0.705 uIU/ML (0.55-4.78)
[2024-10-06 08:15] LABS: TOTAL 25(OH) VITAMIN D 55.4 NG/ML (20.0-100.0)
[2024-10-06 08:44] LABS: HEMOGLOBIN A1c 5.4 % (4.0-6.0)
== END ==
LOC: M LAB 07:10
PROVIDERS: ATTEND Nurse Practitioner Adult Health
DX: I11.9 Hypertensive heart disease without heart failure (principal); R73.03 Prediabetes; E78.00 Pure hypercholesterolemia, unspecified; E03.9 Hypothyroidism, unspecified; E55.9 Vitamin D deficiency, unspecified

== ENCOUNTER → 2025-04-10 | Outpatient (CLI) | payer MEDICARE ==
[2025-04-10 07:35] LABS: BASO # 0.0 10^3/uL (0.0-0.2); BASO % 0.5 % (0.0-1.0); EOS # 0.3 10^3/uL (0.0-0.5); EOS % 4.4 % (0.0-3.0); LYMPH # 1.5 10^3/uL (1.5-5.0); LYMPH % 19.6 % (24.0-44.0); MONO # 0.7 10^3/uL (0.0-0.8); MONO % 8.8 % (2.0-8.0); NEUTROPHILS # 5.1 10^3/uL (1.5-8.5); NEUTROPHILS % 66.4 % (36.0-66.0); PLATELET COUNT, AUTOMATED 263 10^3/uL (150-450)
[2025-04-10 08:12] LABS: ESTIMATED AVERAGE GLUCOSE 117.0 MG/DL (60-110)
[2025-04-10 08:16] LABS: ALT/SGPT 20 U/L (7.0-40); AST/SGOT 18 U/L (<34); CALCIUM LEVEL 9.3 MG/DL (8.3-10.6); CARBON DIOXIDE LEVEL 29 MMOL/L (20-31); CHLORIDE LEVEL 102 MMOL/L (98-107); CHOLESTEROL LEVEL 160 MG/DL (<200); CHOLESTEROL RISK RATIO 2.50 (<5); CREATININE FOR GFR 0.70 MG/DL (0.55-1.30); FREE T4 1.28 NG/DL (0.89-1.76); GLOMERULAR FILTRATION RATE > 90.0 (>39); LDL CHOLESTEROL 83.4 MG/DL (<100); NON-HDL-C 96.2 MG/DL; POTASSIUM SERUM 4.1 MMOL/L (3.5-5.1); SODIUM LEVEL 141 MMOL/L (136-145); TRIGLYCERIDES LEVEL 64 MG/DL (<150)
== END ==
LOC: M LAB 06:36
PROVIDERS: ATTEND Nurse Practitioner Adult Health
DX: I11.9 Hypertensive heart disease without heart failure (principal); R73.03 Prediabetes; E78.00 Pure hypercholesterolemia, unspecified; E03.9 Hypothyroidism, unspecified

== ENCOUNTER 2025-07-01 10:55 | Emergency (ER) | payer MEDICARE, OTHER ==
[~2025-07-01] VITALS: Ht 160 cm; Wt 114.6 kg
[2025-07-01 14:22] VITALS: BP 134/68; TEMP 97.1; O2SAT 99
== END 2025-07-01 14:23 | disposition home or self-care (01) ==
LOC: M ED 10:55
DX: S00.83XA Contusion of other part of head, initial encounter (principal); W18.30XA Fall on same level, unspecified, initial encounter; Y92.9 Unspecified place or not applicable; Y93.9 Activity, unspecified; Y99.9 Unspecified external cause status; I10 Essential (primary) hypertension; E03.9 Hypothyroidism, unspecified; E78.5 Hyperlipidemia, unspecified; M43.12 Spondylolisthesis, cervical region; Z79.899 Other long term (current) drug therapy